=== PATIENT | male | born 1930 | race Caucasian/White ===

== ENCOUNTER 2016-03-04 16:14 | Inpatient (IN) | payer MEDICARE ==
[~2016-03-04] VITALS: Ht 180.3 cm; Wt 91.2 kg
[2016-03-04 16:16] VITALS: BP 149/75; PULSE 83; RESP 16; O2SAT 95
--- NOTE | 2016-03-04 16:47 | ED.REPORT ---
HPI-General Illness Date of Service Mar 04, 2016 ED Provider: Dr. Ordoñez Pt is an 85 y.o. male with a hx of HTN, DM, and dementia who presents to the ED form accompanied by his with nausea, vomiting , and diarrhea onset 5 days ago. Per report and pt has associated cough, nasal congestion, rhinorrhea, decreased PO intake, generalized weakness, and abdominal soreness due to cough. states pt has not had fever and reports no hx of CHF or COPD. Pt received a flu swab at and it was negative for Influenza A and B. Nursing Notes Stated Complaint: NAUSEA, VOMITING, DIARRHEA, WEAKNESS/SENT FROM [facility] Chief Complaint: General Complaint Nursing Notes Reviewed: Yes Allergies: Coded Allergies: No Known Allergies (Unverified Allergy, Unknown, 03/04/16) General Time Seen by MD: 16:47 Chief Complaint Diarrhea, Vomiting Hx Obtained From: Patient, Spouse Arrived By: Walk-in Sudden in Onset?: Yes Onset Occurred: 5 days ago Symptom Duration: Since onset Location: : Abdomen Quality: Painful Severity: Current: Moderate Recent Healthcare: Recent doctor visit Past Medical History Past Medical History Dementia Reports: Diabetes mellitus, Hypertension, Denies: COPD Past Surgical History Throat abscess Reports: Cholecystectomy Reports: Back/neck surgery Review of Systems Decreased PO intake Full Review of Systems Constitutional: Reports: Weakness - generalized, Denies: Fever Ears / Nose / Throat: Reports: Nasal congestion GI: Reports: Abdominal pain, Diarrhea, Nausea, Vomiting Allergy / Immune: Reports: Rhinorrhea Complete sys rev & neg: except as marked. Physical Exam Vital Signs Vital Signs Date Time Temp Pulse Resp B/P Pulse Ox O2 Delivery O2 Flow Rate FiO2 03/04/16 16:54 82 15 112/80 91 Room Air 03/04/16 16:16 36.5 83 16 149/75 95 Room Air Initial VS: Reviewed Head / Eyes: Atraumatic, Normocephalic Extremities: Vascular intact, Neuro intact Skin: Warm, Dry, No cyanosis Neurologic: Alert, Oriented, Nonfocal Psychiatric: Mood/affect normal, Behavior normal, Normal thought content General/Constitutional: Awake, Alert, Well appearing, Well developed, Well hydrated, Well nourished, Not toxic appearing Respiratory / Chest: Atraumatic, No respiratory distress, No rales, No rhonchi , No wheezing, No retractions, No stridor Diminished Breath Sounds: Positive: Decreased bilateral No crackles Cardiovascular: Heart rate NL, Regular rhythm, Heart sounds NL, Peripheral circulation NL No lower extremity edema Abdomen: Atraumatic, Soft, No guarding, No rebound Tenderness/Guarding/Rebound: Positive: Tender suprapubic (Mild) Interpretation & Diagnostics Lab Results Interpretation Result Diagram: 03/04/16 1720 03/04/16 1720 Test 03/04/16 17:20 White Blood Count 7.5th/mm3 (3.8-10.1) Red Blood Count 3.96mil/mm3 (4.40-5.80) Hemoglobin 13.0g/dL (13.8-17.2) Hematocrit 38.3% (41.0-50.0) Mean Corpuscular Volume 96.7fL (81-100) Mean Corpuscular Hemoglobin 32.8pg (27.0-35.0) Mean Corpuscular Hemoglobin Concent 33.9% (32.0-37.0) Red Cell Distribution Width 12.5% (12.3-15.4) Platelet Count 209bil/L (150-400) Neutrophils (%) (Auto) 76.7% (40-74) Lymphocytes (%) (Auto) 9.4% (14-46) Monocytes (%) (Auto) 11.9% (4-12) Eosinophils (%) (Auto) 1.6% (0-5) Basophils (%) (Auto) 0.3% (0-3) Prothrombin Time 10.7sec (8.1-12.5) Prothromb Time International Ratio 1.00ratio Activated Partial Thromboplast Time 25.4sec (22.8-33.0) Sodium Level 135mEq/L (134-144) Potassium Level 3.4mEq/L (3.5-5.2) Chloride Level 97mEq/L (97-108) Carbon Dioxide Level 24mmol/L (18-29) Blood Urea Nitrogen 39mg/dL (8-27) Creatinine 1.29mg/dL (0.76-1.27) Estimat Glomerular Filtration Rate 56mL/min (>59) Glucose Level 129mg/dL (60-99) Lactic Acid Level 1.5mmol/L (0.4-2.0) Calcium Level 8.8mg/dL (8.5-10.1) Total Bilirubin 0.6mg/dL (0.0-1.2) Aspartate Amino Transf (AST/SGOT) 23U/L (0-50) Alanine Aminotransferase (ALT/SGPT) 18U/L (0-44) Alkaline Phosphatase 117U/L (25-160) Troponin T < 0.010ug/L (0.0-0.011) Pro-B-Type Natriuretic Peptide 40.65pg/mL (0-486) Total Protein 7.6g/dL (6.4-8.4) Albumin 4.4g/dL (3.4-5.0) Lipase 62U/L (13-60) ECG Interpretation ECG Interpretation: No ST changes Time: 17:39 Normal ECG Interpretation: Normal rate (76), Normal sinus rhythm X-Ray Chest Interpretation Chest Xray Interpretation: IMPRESSION: Slight appearance of increased right basilar opacity. Developing airspace disease such as pneumonia cannot be excluded. Dictated by: Chante Rodriguez M.D. on 03/04/2016 at 17:11 Approved by: Chante Rodriguez M.D. on 03/04/2016 at 17:11 Re-Eval/Medical Decision Med Decision/Clinical Course 85-year-old male history of diabetes, dementia, hypertension presenting with cough nausea vomiting for several days. Chest x-ray with right basilar pneumonia. Oxygen 88% on room air. Requiring several liters oxygen. Troponins negative. Patient will be admitted for pneumonia. He was given Rocephin and azithromycin. We will place on telemetry. Full code. Source of Hx: Old records Time of Eval: 18:31 Re-Evaluation/Progress Note: Pt rechecked. Discussed dx and plan for admission, pt understands and agrees with plan. Pt is full code. Consultation : Referral / Consult Name: Booker Goddard MD Consulted With: Hospitalist Call Returned at: 18:44 Note: Discussed pt condition, accepts admit. Counseled Regarding: Diagnosis, Lab results, Need for admission Discharge & Departure Primary Impression: Pneumonia Disposition: ADMITTED TO HOSPITAL Discharge Condition All VS Reviewed: Yes Condition: Stable Referrals: Tyler Boo MD (PCP) Scribe Attestation Portions of this note were transcribed by Will Huerta I, Dr. Lucas-Roberts personally performed the history, physical exam and medical decision-making; I reviewed and confirmed the accuracy of the information in the transcribed note. Signed by: Blanca Vallejo, 03/04/16 and 1846. copies to: Tyler Boo MD, Ben M MD Mar 04, 2016 16:47 WILL HUERTA Mar 04, 2016 17:01
[2016-03-04 16:54] VITALS: BP 112/80; PULSE 82; RESP 15; O2SAT 91
--- NOTE | 2016-03-04 17:17 | DRSVH ---
PROCEDURE: X-RAY CHEST ONE VIEW, PORTABLE ([id number]) INDICATIONS: dyspnea TECHNIQUE: One view of the chest was acquired. COMPARISON: [facility], CR, XR CHEST 2VW, 09/02/2015, 19:22. FINDINGS: Surgical changes and devices: None. Lungs and pleura: Slight appearance of slight increased opacity within the right base. Mediastinum: Mediastinal contours appear normal. Heart size is normal. Bones and chest wall: No suspicious bony lesions. Overlying soft tissues appear unremarkable. IMPRESSION: Slight appearance of increased right basilar opacity. Developing airspace disease such as pneumonia cannot be excluded. Dictated by: Chante Rodriguez M.D. on 03/04/2016 at 17:11 Approved by: Chante Rodriguez M.D. on 03/04/2016 at 17:11
[2016-03-04 17:37] LABS: BASOPHILS % (AUTO) 0.3 % (0-3); EOSINOPHILS % (AUTO) 1.6 % (0-5); MONOCYTES % (AUTO) 11.9 % (4-12); Mean Corpuscular Hemoglobin 32.8 pg (27.0-35.0); Mean Corpuscular Volume 96.7 fL (81-100); NEUTROPHILS % (AUTO) 76.7 % (40-74); Platelet Count 209 bil/L (150-400)
[2016-03-04 18:10] LABS: TROPONIN T < 0.010 ug/L (0.0-0.011)
[2016-03-04] MEDS ORDERED: cefTRIAXone Inj 2,000 MG in IV Premix 1 EACH IV SCH (18:25)
[2016-03-04] MEDS ORDERED: Azithromycin Inj 500 MG in Dextrose 5% 250 ML IV ONE (18:25)
[2016-03-04] MEDS ORDERED: Ondansetron 2 mg/mL 2 mL Inj IVPUSH PRN (19:10)
[2016-03-04] MEDS ORDERED: Alum-Mag Hydrox-Simeth 30 mL Suspension PO PRN (19:10)
[2016-03-04] MEDS ORDERED: cefTRIAXone Inj 2,000 MG in Dextrose 5% Minibag Plus 50 ML IV SCH (19:33)
[2016-03-04] MEDS ORDERED: [UNRECOGNIZED DRUG - OTHER] IV ONE (19:36)
[2016-03-04] MEDS ORDERED: CEFTRIAXONE 2000 MG/50 ML IV ONE (19:36)
[2016-03-04] MEDS ORDERED: Glucose 40% Oral Gel 15 Gm Tube PO PRN (19:40)
--- NOTE | 2016-03-04 19:46 | PCM.HPMED ---
Subjective Date of Service Mar 04, 2016 Primary Provider: Admitting Physician: Booker Goddard MD Primary Care Physician: Suhas Fisher MD Attending Physician: Booker Goddard MD Chief Complaint: vomiting x 5 days, found to be also hypoxic at urgent care HISTORY was OBTAINED FROM PATIENT / MEDITECH NOTES History of present illness 85-year-old man with vomiting, with mild epigastric discomfort on palpation only, diarrhea, weakness for the last 5 days, sent by urgent care with influenza negative. SOB was after the 5 days of vomiting. initially vomiting was blood tingued but remainder vomiting has been w/o blood. No fever/CHF/COPD/pancreatitis history. no recent fatty food. no recent questionable food ingestion. prior cholecystectomy was due to gallstones. no choking/dysphagia on food in general. In the ER 85% room air, Rocephin, azithromycin, Tylenol, Zofran Maalox, felt better with oxygen, diminished breath sounds Review of Systems - none of the following - F/C/sick contact / wt change/ VARGAS / lightheaded / dizziness / cp // bleeding/bruising / leg swelling / change in voiding / yeast infections / rash Abdominal muscles hurt from cough ambulates recent right leg edema 3 weeks ago, not bedridden FAMILY HX no gallstones/ no pancreatitis SOCIAL HX Social EtOH, Distant smoker Past Medical/Surgical HX Colon polyps hemorrhoids Hypertension Diabetes type II insulin use Cholecystectomy, throat abscess drainage, back operation Dementia Allergies Coded Allergies: No Known Allergies (Unverified Allergy, Unknown, 03/04/16) PMH Social History Hx Alcohol Use: Yes ("once a month") Hx Substance Use: No Exam Vital Signs Vital Sign - Last Date Time Temp Pulse Resp B/P Pulse Ox O2 Delivery O2 Flow Rate FiO2 03/04/16 16:54 82 15 112/80 91 Room Air 03/04/16 16:16 36.5 Lab and Diagnostics Labs Exam on admission 1.5 L NC NAD A and O x 3 mood affect WNL NC/AT no icterus no injected eyes EOMI PERRL /no pharyngeal lesions/ no oral lesions / hearing intact Supple neck CTAB equal chest rise / no accessory muscle use / speaks in full sentences / no rrw RRR S1 S2 / no mrg / 2+ radial pulses epigastric tenderness // Soft nd + BS no hepatosplenomegaly trace jones bilateral edema no cyanosis no ecchymosis of lower extremities No rash / no jaundice CARD EKG sinus rhythm and ST depressions in lateral leads are not significant Trop normal BNP 40 lactic acid normal Flu negative Blood culture pending Influenza negative PCR viral pending LFT normal, lipase 62 Left shift INR 1 Imaging PROCEDURE: X-RAY CHEST ONE VIEW, PORTABLE ([id number]) INDICATIONS: dyspnea TECHNIQUE: One view of the chest was acquired. COMPARISON: [facility], CR, XR CHEST 2VW, 09/02/2015, 19:22. FINDINGS: Surgical changes and devices: None. Lungs and pleura: Slight appearance of slight increased opacity within the right base. Mediastinum: Mediastinal contours appear normal. Heart size is normal. Bones and chest wall: No suspicious bony lesions. Overlying soft tissues appear unremarkable. IMPRESSION: Slight appearance of increased right basilar opacity. Developing airspace disease such as pneumonia cannot be excluded. Result Diagram: 03/04/16 1720 03/04/16 1720 Assessment & Plan Active issues and reason for admission 85-year-old male who presented with vomiting diarrhea then cough, treating as gastroenteritis/pancreatitis and right aspiration pneumonia/community-acquired pneumonia, hypoxia associated -- Zofran, clear liquid diet as tolerated, Rocephin and azithromycin,IVF 75cc/ hr x 500cc, famotitidine IV -- Sputum, stool pending, PCR viral pending, DuoNeb's when necessary, wean O2, incentive spirometer elevated lipase, normal LFTs, likely nonspecific finding, prior cholecystectomy -- Low threshold to hold diet, CT abdomen to evaluate for choledocholithiasis/ overt pancreatic duct stone, lipase in the morning -- Cholesterol pending, no prior dyslipidemia, not heavy ETOH, no prior pancreatitis hx recent resolved Right leg edema --pending US, no DVT risk factors elicited RIYA, likely prerenal --IVF 75 / hr x 500cc Chronic issues known prior to admission, present on admission Colon polyps hemorrhoids Hypertension Diabetes type II insulin use Cholecystectomy, throat abscess drainage, back operation Dementia --SSI --prn antiHTN IV Diet clear DVT prophylaxis lovenox Code full Disposition inpt Assessment and plan were discussed with patient Booker Goddard MD Mar 04, 2016 19:46
[2016-03-04] MEDS ORDERED: Albuterol-Ipratropium 3 mL Inhalation Solution NEB PRN (19:50)
--- NOTE | 2016-03-04 19:57 | NUR ---
Admit Patient arrived to floor at 1954 from ED. Patient A&Ox3. IV in left AC, patent and infusing ABX. Patient's vitals stable. Report received from Velma MONTERO. Patient on 2L O2.
[2016-03-04 20:15] VITALS: BP 146/65; PULSE 83; RESP 20; O2SAT 96
[2016-03-04] MEDS: 0.9% Sodium Chloride 500 ML IV SCH (20:54)
[2016-03-04 21:20] LABS: APPEARANCE,URINE CLEAR (CLEAR,HAZY); COLOR,URINE YELLOW (YELLOW); OCCULT BLOOD,URINE NEGATIVE (NEGATIVE); PH,URINE 5.5 (5.0-8.0); UROBILINOGEN,URINE NORMAL (NORMAL)
[2016-03-04] MEDS: Famotidine Inj 20 MG in IV Premix 1 EACH IV SCH (21:54)
[2016-03-04] MEDS: Insulin LISPRO 300 Unit/3 mL Inj SUBQ SCH (22:00)
[2016-03-04] MEDS ORDERED: cefTRIAXone Inj 2,000 MG in Dextrose 5% Minibag Plus 50 ML IV ONE (23:17)
[2016-03-05] VITALS (8 sets, daily range): BP systolic 142–165; BP diastolic 65–76; PULSE 69–84; RESP 16–21; O2SAT 94–97
[2016-03-05] MEDS: 0.9% Sodium Chloride 500 ML IV SCH ×3 (04:30→16:48)
--- NOTE | 2016-03-05 05:02 | NUR ---
Blood sugar Patient's blood sugar was 58 at 0315. Patient was given apple juice and jello ot eat. 15 minutes later patient's blood sugar was 101. Patient stated he felt fine and no other symptoms of hypoglycemia were present.
[2016-03-05] MEDS: Insulin LISPRO 300 Unit/3 mL Inj SUBQ SCH ×4 (08:00→22:00)
[2016-03-05 08:07] LABS: BASOPHILS % (AUTO) 0.5 % (0-3); EOSINOPHILS % (AUTO) 2.3 % (0-5); MONOCYTES % (AUTO) 13.8 % (4-12); Mean Corpuscular Hemoglobin 33.4 pg (27.0-35.0); Mean Corpuscular Volume 96.6 fL (81-100); NEUTROPHILS % (AUTO) 68.4 % (40-74); Platelet Count 185 bil/L (150-400)
[2016-03-05] MEDS: Azithromycin Inj 500 MG in Dextrose 5% w/Vial Mate 250 ML IV SCH (08:30)
[2016-03-05] MEDS ORDERED: cefTRIAXone Inj 1,000 MG in Dextrose 5% Minibag Plus 50 ML IV SCH (08:30)
[2016-03-05] MEDS: Famotidine Inj 20 MG in IV Premix 1 EACH IV SCH ×2 (10:00→22:11)
--- NOTE | 2016-03-05 11:56 | DRSVH ---
PROCEDURE: CT ABDOMEN WITHOUT CONTRAST ([id number]) INDICATIONS: pancreatitis/choledocholith TECHNIQUE: After the administration of oral contrast, 5 mm thick sections acquired from the diaphragms to the il iac crests. 5 mm coronal and sagittal reformats were then performed. For radiation dose reduction, the following was used: automated exposure control, adjustment of mA and/or kV according to patient size. COMPARISON: None. FINDINGS: Image quality: Excellent. Lung bases: Mild atelectasis or scar is present at the right lung base. Heart is normal size. Solid organs: Liver and spleen are normal in size. No intrahepatic biliary ductal dilatation is note d on this noncontrast study. The common bile duct is grossly normal. No suspicious intraductal radiod ensities. Gallbladder is surgically absent. Pancreas is normal in contours. No adrenal nodules. Anibal th kidneys are normal in size, without hydronephrosis. There is a nonobstructing 9 mm in diameter rig ht midpole renal calculus. Peritoneum and bowel: Bowel loops demonstrate normal wall thickness and caliber. No free fluid or a ir. Nodes and vessels: No retroperitoneal or mesenteric adenopathy by size criteria. Aorta and inferior vena cava are normal in size. There are scattered atheromatous calcifications throughout the aorta a nd iliac arteries bilaterally. Bones: No suspicious bony lesions. No vertebral body compression fractures. Degenerative changes an d ankylosis are present within the thoracolumbar junction. Miscellaneous: No ventral hernias. IMPRESSION: 1. Nonocclusive right nephrolithiasis. 2. No intrahepatic biliary ductal dilatation or suspicious findings in the common bile duct; however, CT is less sensitive for choledocholithiasis and biliary ectasia. If further characterization is war ranted, right upper quadrant ultrasound or MRCP may be helpful. Dictated by: Francine Montiel M.D. on 03/05/2016 at 11:47 Approved by: Francine Montiel M.D. on 03/05/2016 at 11:54
[2016-03-05] MEDS ORDERED: Potassium Chloride 20 mEq SR Tablet PO ONE (13:55)
--- NOTE | 2016-03-05 14:01 | PCM.PNMED ---
Subjective Date of Service Mar 05, 2016 Subjective History of present illness as per admitting physician: 85-year-old man with vomiting, with mild epigastric discomfort on palpation only , diarrhea, weakness for the last 5 days, sent by urgent care with influenza negative. SOB was after the 5 days of vomiting. initially vomiting was blood tingued but remainder vomiting has been w/o blood. No fever/CHF/COPD/ pancreatitis history. no recent fatty food. no recent questionable food ingestion. prior cholecystectomy was due to gallstones. no choking/dysphagia on food in general. In the ER 85% room air, Rocephin, azithromycin, Tylenol, Zofran Maalox, felt better with oxygen, diminished breath sounds S- patient was seen this morning, states she feels better has been having loose stool but states he has loose stool at baseline. With increased urgency/ incontinence chronically. Patient has been having URI symptoms lately and granddaughter at home had some URI symptoms as well. Currently denies shortness of breath or chest pain. Exam Vital Signs Vital Sign - Last Date Time Temp Pulse Resp B/P Pulse Ox O2 Delivery O2 Flow Rate FiO2 03/05/16 10:31 36.8 78 18 145/72 94 Nasal Cannula 2.00 Intake and Output 03/04/16 03/04/16 03/05/16 Cumulative From/Thru 15:00 23:00 07:00 03/04/16 16:16 - 03/05/16 06:51 Intake Total 540 ml 540 ml Output Total 625 ml 625 ml Balance -85 ml -85 ml Intake Oral 540 ml 540 ml Output Urine Total 625 ml 625 ml Stool Total 0 ml 0 ml # Voids 4 4 Exam 2 L nasal cannula NAD A and O x 3 mood affect WNL NC/AT no icterus no injected eyes EOMI PERRL /no pharyngeal lesions/ no oral lesions / hearing intact Supple neck CTAB equal chest rise / no accessory muscle use / speaks in full sentences / no rrw RRR S1 S2 / no mrg / 2+ radial pulses epigastric tenderness // Soft nd + BS no hepatosplenomegaly trace jones bilateral edema no cyanosis no ecchymosis of lower extremities No rash / no jaundice CARD IVs and Medications Medications Reviewed: Medications were reviewed in detail Medications Added 40 mg potassium chloride to regimen 1 Lab and Diagnostics Result Diagram: 03/05/1613 03/05/1613 X-Rays, CTs and MRIs CT abdomen IMPRESSION: 1. Nonocclusive right nephrolithiasis. 2. No intrahepatic biliary ductal dilatation or suspicious findings in the common bile duct; however, CT is less sensitive for choledocholithiasis and biliary ectasia. If further characterization is warranted, right upper quadrant ultrasound or MRCP may be helpful. 12-lead ECG Normal sinus rhythm on EKG, no acute ischemic changes, normal axis and normal intervals Assessment & Plan 85-year-old male who presented with vomiting diarrhea then cough, treating as gastroenteritis and right aspiration pneumonia/community-acquired pneumonia, hypoxia associated -- Zofran, advance diet from clear liquid upon admission today --Continue Rocephin and azithromycin, status post IVF 75cc/hr x 500cc, will stop IV fluids now -- famotitidine IV -- Sputum, stool pending, PCR viral pending, DuoNeb's when necessary, wean O2, incentive spirometer -- Pancreatitis initially on differential, but now CT with no evidence of pancreatitis and patient's nausea improving elevated lipase, normal LFTs, likely nonspecific finding, prior cholecystectomy- repeat lipase normalized -- CT abdomen to evaluate for choledocholithiasis/overt pancreatic duct stone was negative -- Cholesterol pending, no prior dyslipidemia, not heavy ETOH, no prior pancreatitis hx recent resolved Right leg edema --pending US, no DVT risk factors elicited RIYA, likely prerenal --IVF 75 / hr x 500cc, now stopped 03/05 Chronic issues known prior to admission, present on admission Colon polyps hemorrhoids Hypertension Diabetes type II insulin use Cholecystectomy, throat abscess drainage, back operation Dementia --SSI --prn antiHTN IV Diet clear DVT prophylaxis lovenox Code full Disposition inpt Assessment and plan were discussed with patient Pain Evaluation: Adequate Pain Control GI Prophylaxis: H2 glenn VTE Mechanical Devices: Intermittant Pneumatic CD Resuscitation Status: CPR: Attempt Resuscitation Time spent 35 minutes spent for evaluation and management of this patient Attending Statement Likely discharge with stabilization of hypoxia and continued stabilization of GI symptoms, pending PT Julian Boles DO Mar 05, 2016 14:01
--- NOTE | 2016-03-05 14:07 | NUR ---
Tele Tele called that pt had run of bigem PVC's from 1334 to 1348. Pt is asymptomatic upon assessment. MD notified and stat EKG ordered, along with potassium PO.
[2016-03-05] MEDS ORDERED: ZOLP5TAB6 PO (14:17)
[2016-03-05] MEDS ORDERED: MIRT15TA6 PO (14:17)
[2016-03-05] MEDS ORDERED: NPH,100V11 SUBQ ×2 (14:17)
[2016-03-05] MEDS ORDERED: NIFE60TA62 PO (14:17)
[2016-03-05] MEDS ORDERED: LACT1CAP67 PO (14:17)
[2016-03-05] MEDS ORDERED: DONE10TA42 PO (14:17)
[2016-03-05] MEDS ORDERED: LOVA40TA PO (14:17)
[2016-03-05] MEDS ORDERED: METF1000 PO (14:17)
[2016-03-05] MEDS ORDERED: HYDR25TA4 PO (14:17)
[2016-03-05] MEDS ORDERED: ASPI-973 PO (14:17)
--- NOTE | 2016-03-05 15:55 | NUR ---
Social work: Initial Assessment Data & Assessment: EMR Reviewed. See Initial Assessment. SW met with patient and patient's /NOK, Cristiane Herrera- [phone], at bedside to complete initial assessment, discuss discharge planning, and SW role reviewed. Patient is a 85 y/o male that admitted due to pneumonia. Patient's PCP is Dr. Suhas Fisher and patient's insurance is [employer] Medicare. Patient does not have VA or LTC benefits. Patient's re-admit score is low at 1. Patient has no SNF or HH history. Patient lives in a one story home with two steps to enter. patient has a walker and cane. Patient does not have an identified SW need at the current time. SW will continue to follow incase a need arise. Plan: Patient is likely to discharge home with spouse via POV when medically stable. SW will continue to follow. Matias Bell LMSW, JESUS Addendum: 03/05/16 at 1601 by MATIAS KOHLI Amended: Links added.
--- NOTE | 2016-03-05 18:10 | NUR ---
Activity Pt extremely unsteady on feet, but is overly confidant about abilities. Wants to use BR and will try to get OOB by himself. Pt has urgency and can be incontinant if not helped in time. Pt has brief on. Alert only to self, but pleasant and agreeable to care. O2 at last check was 96% on RA, so oxygen off for now. Pt did have some coughing while eating, no PO medications taken today, but said he can have problems swallowing large pills. Might want to have MD order a swallow eval tomorrow.
[2016-03-06] VITALS (7 sets, daily range): BP systolic 151–178; BP diastolic 70–75; PULSE 75–89; RESP 18–19; O2SAT 92–96
--- NOTE | 2016-03-06 03:30 | NUR ---
ACTIVITY; up to bathroom with one assistance to void. Also brief on for inc. of urine. Using call light appropriately.
--- NOTE | 2016-03-06 04:41 | NUR ---
WEIR FISHERMAN; reports: less than one minute run of bigem. Sleeping, no c/o voiced.
[2016-03-06 06:17] LABS: BASOPHILS % (AUTO) 0.4 % (0-3); EOSINOPHILS % (AUTO) 4.8 % (0-5); MONOCYTES % (AUTO) 16.3 % (4-12); Mean Corpuscular Hemoglobin 33.3 pg (27.0-35.0); Mean Corpuscular Volume 96.3 fL (81-100); NEUTROPHILS % (AUTO) 56.4 % (40-74); Platelet Count 174 bil/L (150-400)
[2016-03-06] MEDS: Insulin LISPRO 300 Unit/3 mL Inj SUBQ SCH ×4 (08:00→22:00)
[2016-03-06] MEDS ORDERED: KCl 40 mEq/D5W 500 mL 40 MEQ in IV Premix 500 EACH IV ONE (08:05)
[2016-03-06] MEDS ORDERED: Potassium Chloride 20 mEq SR Tablet PO ONE (08:05)
[2016-03-06] MEDS: Azithromycin Inj 500 MG in Dextrose 5% w/Vial Mate 250 ML IV SCH (08:09)
[2016-03-06] MEDS: Fluticasone 0.05% 15 Spray/2 Gm 16 Gm Nasal Spray NASAL SCH (08:09)
[2016-03-06] MEDS: Famotidine Inj 20 MG in IV Premix 1 EACH IV SCH ×2 (08:10→20:54)
[2016-03-06] MEDS ORDERED: cefTRIAXone Inj 1,000 MG in Dextrose 5% Minibag Plus 50 ML IV SCH (08:30)
--- NOTE | 2016-03-06 11:00 | NUR ---
JASE: Patient at bedside and she signed for patient.
[2016-03-06] MEDS ORDERED: 0.9% Sodium Chloride 250 ML ONE (11:52)
--- NOTE | 2016-03-06 15:22 | NUR ---
Evaluation completed. Please go to "Notes" then click on "Assessments and Notes" (bottom left corner of screen). Then select appropriate discipline tab on top of screen.
--- NOTE | 2016-03-06 15:58 | NUR ---
GI- Denies nausea or abd. pain. Up to bathroom with walker and standby assist. Voiding ivory colored urine. Has had liquid brown stool x 2. Tolerating diet and fluids. Patient was disoriented this am, but has become mentally clearer as the day as progressed. Calling for assist appropriately.
--- NOTE | 2016-03-06 19:29 | PCM.PNMED ---
Subjective Date of Service Mar 06, 2016 Subjective denies any new issues/complaints. continued abdominal pain and diarrhea with cough Exam Vital Signs Vital Sign - Last Date Time Temp Pulse Resp B/P Pulse Ox O2 Delivery O2 Flow Rate FiO2 03/06/16 16:45 Supplement Oxygen 03/06/16 14:44 36.7 76 18 151/70 95 03/06/16 05:32 2.00 Intake and Output 03/05/16 03/05/16 03/06/16 Cumulative From/Thru 15:00 23:00 07:00 03/04/16 16:16 - 03/06/16 05:48 Intake Total 968 ml 1362 ml 350 ml 3220 ml Output Total 350 ml 300 ml 1275 ml Balance 968 ml 1012 ml 50 ml 1945 ml Intake Oral 600 ml 350 ml 1490 ml IV Total 968 ml 762 ml 1730 ml Output Urine Total 350 ml 300 ml 1275 ml Stool Total 0 ml # Voids 4 4 12 General: Alert, Cooperative, No Acute Distress Eyes: Scleral Anicteric Mouth: Mucous Membr Moist/Chicken Neck: Supple Chest & Lungs: Chest Wall Normal, Coarse breath sounds (upper resp bilat) Cardiovascular: Regular Rate/Rhythm Abdomen: Tender (mid abd), Non-distended, Normoactive bowel tones, Soft Extremities: No cyanosis/clubbing/edma bilat Neurological: Grossly Neurologically Intact, Normal Speech IVs and Medications Medications Reviewed: Medications were reviewed in detail Lab and Diagnostics Result Diagram: 03/06/1653203/06/16 0533 X-Rays, CTs and MRIs CT abdomen IMPRESSION: 1. Nonocclusive right nephrolithiasis. 2. No intrahepatic biliary ductal dilatation or suspicious findings in the common bile duct; however, CT is less sensitive for choledocholithiasis and biliary ectasia. If further characterization is warranted, right upper quadrant ultrasound or MRCP may be helpful. 12-lead ECG Normal sinus rhythm on EKG, no acute ischemic changes, normal axis and normal intervals Assessment & Plan 85-year-old male who presented with vomiting diarrhea then cough # Suspected acute community acquired vs aspiration pneumonia on admission - clinically seems unlikely given negative procalcitonin, no leukocytosis, afebrile and CXR finding - checked resp viral PCR and indeed positive for Flu A - stop Abx - ? benefit of Tamiflu given symptoms apparently ongoing for few days prior to presentation nevertheless given advanced age and comorbidities will start treatment for at least 5 days # Acute on chronic abdominal pain and diarrhea - apparently somewhat worked up in the past - check stool PCR - if abdominal pain persist will consider GI consult for consideration of EGD # elevated lipase, normal LFTs, likely nonspecific finding, - prior cholecystectomy - repeat lipase normalized # RIYA, poa. likely prerenal - resolved with IVF - f/u # Hypertension. chronic. poorly controlled - Stop home HCTZ - start low dose Lisinopril - f/u # Diabetes type II insulin use - Hold metformin - ISS - check A1C # Dementia - mild and stable - c/w home Donepezil Dispo: likely 2-3 days pending further PT eval and clinical course GI Prophylaxis: H2 glenn VTE Mechanical Devices: Intermittant Pneumatic CD Resuscitation Status: CPR: Attempt Resuscitation Time spent 35 min Earnest Colbert Mar 06, 2016 19:29
[2016-03-07 00:43] VITALS: BP 167/70; PULSE 79; RESP 16; O2SAT 92
[2016-03-07 04:48] VITALS: BP 156/62; PULSE 54; RESP 16; O2SAT 95
[2016-03-07 06:19] LABS: BASOPHILS % (AUTO) 0.2 % (0-3); EOSINOPHILS % (AUTO) 8.7 % (0-5); MONOCYTES % (AUTO) 18.5 % (4-12); Mean Corpuscular Volume 97.5 fL (81-100); NEUTROPHILS % (AUTO) 45.5 % (40-74); Platelet Count 167 bil/L (150-400)
--- NOTE | 2016-03-07 07:03 | NUR ---
activity pt has been using the call light appropriately. he has been getting up to go to the bathroom with 1 PA. it takes pt some time and effort to get to a standing position from the bed but once up he walks steadily with a FWW. he has denied pain or N/V. he has had no BMs this shift. care continues.
[2016-03-07] MEDS: Insulin LISPRO 300 Unit/3 mL Inj SUBQ SCH ×2 (07:57→13:45)
[2016-03-07 08:21] VITALS: PULSE 71; RESP 16; O2SAT 93
[2016-03-07] MEDS ORDERED: 0.9% Sodium Chloride 250 ML ONE (08:38)
[2016-03-07] MEDS: Famotidine Inj 20 MG in IV Premix 1 EACH IV SCH (08:42)
[2016-03-07] MEDS: Fluticasone 0.05% 15 Spray/2 Gm 16 Gm Nasal Spray NASAL SCH (08:42)
[2016-03-07] MEDS ORDERED: LISI2.5T PO (12:49)
--- NOTE | 2016-03-07 12:55 | PCM.DIMED ---
Discharge Instructions Date of Service Mar 07, 2016 Dates of Hospitalization Mar 04, 2016 at 18:55 Discharge Diagnosis Discharge Diagnosis # Acute influenza A H3, present on admission. Improving # acute dehydration, present on admission. Resolved. # Suspected acute community acquired vs aspiration pneumonia on admission ruled out # Acute on chronic abdominal pain and diarrhea. Unclear etiology. Resolved. # Acute Kidney Injury, present on admission. Likely due to dehydration. Resolved. # Hypertension. chronic. ongoing. # Diabetes type II - HgA1C 7.5 # Dementia, mild. stable. Diet Low fat, Low Sodium, Heart Healthy, Diabetic Activity No restrictions (Use front wheel walker when ambulating.) Call your provider Fever or Chills, Shortness of breath, Chest pain, Vomitting, Excessive diarrhea Patient Instructions Seek immediate medical attention if any new or worsening signs or symptoms occur. Follow-up plan 1. Followup with primary care provider in 2-7 days. Follow-up Provider: Suhas Campa MD, Masoud Mar 07, 2016 12:55
--- NOTE | 2016-03-07 13:00 | NUR ---
Social Work Continued Discharge Planning: SW met with patient at bedside to discuss discharge plan. Order for discharge acknowledged. Patient has a walker for use at home. Patient states plan as home with . Patient states being independent with needs and has no identified discharge needs at this time. PT notes reviewed and recommendations for home. No other needs identified at this time. SW to follow. PLAN: Home with via POV. No anticipated discharge needs identified Kalpana CRANDALL
--- NOTE | 2016-03-07 15:34 | NUR ---
Discharge Pt discharged to home with at ~1520. band sawmill operator Bir Zimmerman went over dc paperwork with pt and present. Hard copy script provided to pt. CareNotes provided on dc dx and new medications. SN dc'd IV intact prior to dc. No c/o pain. Pt in stable condition - tele dc'd prior to dc. No unanswered questions/concerns. Left via wc to vehicle. All personal belongings in hand. PRIOR TO DC - ASSESSMENT: Lungs decreased - stable on RA, No c/o chest pain or pain in general, Denied numbness/tingling, Gen bruising noted to bilateral arms. Pt alert but confused, has dementia. [place] in place for pt safety. Call light in reach. Pt calm and cooperative with care - redirectable. IV SL - patent.
--- NOTE | 2016-03-07 19:04 | PCM.DC.MED ---
Discharge Summary Date of Service Mar 07, 2016 Dates of Hospitalization Date of Hospital Admission Mar 04, 2016 at 18:55 Date of Discharge: Mar 07, 2016 Providers: Admitting Physician: Booker Goddard MD Primary Care Physician: Suhas Fisher MD Attending Physician: Booker Goddard MD Diagnosis at Time of Discharge Diagnosis at Time of Discharge # Acute influenza A H3, present on admission. Improving # acute dehydration, present on admission. Resolved. # Suspected acute community acquired vs aspiration pneumonia on admission ruled out # Acute on chronic abdominal pain and diarrhea. Unclear etiology. Resolved. # Acute Kidney Injury, present on admission. Likely due to dehydration. Resolved. # Hypertension. chronic. ongoing. # Diabetes type II - HgA1C 7.5 # Dementia, mild. stable. Procedures XRay, CTs & MRIs Date of Service: 03/05/16 0500 PROCEDURE: CT ABDOMEN WITHOUT CONTRAST ([id number]) IMPRESSION: 1. Nonocclusive right nephrolithiasis. 2. No intrahepatic biliary ductal dilatation or suspicious findings in the common bile duct; however, CT is less sensitive for choledocholithiasis and biliary ectasia. If further characterization is warranted, right upper quadrant ultrasound or MRCP may be helpful. Dictated by: Francine Montiel M.D. on 03/05/2016 at 11:47 Approved by: Francine Montiel M.D. on 03/05/2016 at 11:54 Date of Service: 03/04/16 1701 PROCEDURE: X-RAY CHEST ONE VIEW, PORTABLE ([id number]) IMPRESSION: Slight appearance of increased right basilar opacity. Developing airspace disease such as pneumonia cannot be excluded. Dictated by: Chante Rodriguez M.D. on 03/04/2016 at 17:11 Approved by: Chante Rodriguez M.D. on 03/04/2016 at 17:11 ECG 12 Lead Normal sinus rhythm on EKG, no acute ischemic changes, normal axis and normal intervals Brief History 85-year-old male who presented with vomiting diarrhea then cough Hospital Course # Suspected acute community acquired vs aspiration pneumonia on admission - clinically seems unlikely given negative procalcitonin, no leukocytosis, afebrile and CXR finding - checked resp viral PCR and indeed positive for Flu A - stopped Abx - ? benefit of Tamiflu given symptoms apparently ongoing for few days prior to presentation and now respiratory symptoms almost resolved. # Acute on chronic abdominal pain and diarrhea - apparently somewhat worked up in the past - ordered stool PCR but patient did not have any further BM during this hospital # elevated lipase, normal LFTs, likely nonspecific finding, - prior cholecystectomy - repeat lipase normalized # RIYA, poa. likely prerenal - resolved with IVF # Hypertension. chronic. poorly controlled - Stop home HCTZ given risk of dehydration - start low dose Lisinopril and f/u w/ PCP to adjust as outpatient # Diabetes type II insulin use - A1C 7.5 - further f/u as outpatient # Dementia - mild and stable - c/w home Donepezil by day of d/c lungs CTA bilat. speaking in full sentences. wants to go home. PT cleared pt to go home as well. Exam Vital Signs (Last) Date Time Temp Pulse Resp B/P Pulse Ox O2 Delivery O2 Flow Rate FiO2 03/07/16 08:21 71 16 93 Room Air 03/07/16 04:48 37.0 156/62 03/06/16 05:32 2.00 Test 03/04/16 17:20 03/04/16 20:52 03/05/16 06:13 03/06/16 05:33 Prothrombin Time 10.7sec (8.1-12.5) Prothromb Time International Ratio 1.00ratio Activated Partial Thromboplast Time 25.4sec (22.8-33.0) Lactic Acid Level 1.5mmol/L (0.4-2.0) Total Bilirubin 0.6mg/dL (0.0-1.2) Aspartate Amino Transf (AST/SGOT) 23U/L (0-50) Alanine Aminotransferase (ALT/SGPT) 18U/L (0-44) Alkaline Phosphatase 117U/L (25-160) Troponin T < 0.010ug/L (0.0-0.011) Pro-B-Type Natriuretic Peptide 40.65pg/mL (0-486) Total Protein 7.6g/dL (6.4-8.4) Albumin 4.4g/dL (3.4-5.0) Urine Color Yellow (YELLOW) Urine Appearance Clear (CLEAR,HAZY) Urine pH 5.5 (5.0-8.0) Urine Specific [place] 1.026 (1.003-1.035) Urine Protein Tracemg/dL (NEG,TRACE) Urine Glucose (UA) Negativemg/dL (NEGATIVE) Urine Ketones Negativemg/dL (NEGATIVE) Urine Occult Blood Negative (NEGATIVE) Urine Nitrite Negative (NEGATIVE) Urine Bilirubin Negative (NEGATIVE) Urine Urobilinogen Normalmg/dL (NORMAL) Urine Leukocyte Esterase Negative (NEGATIVE) Urine RBC 0-2/hpf (0-2) Urine WBC 0-5/hpf (0-5) Urine Epithelial Cells Occasional/hpf (NONE-MOD) Urine Crystals None seen (NONE SEEN) Urine Bacteria None/hpf (NONE-FEW) Urine Hyaline Casts None/lpf (NONE) Urine Granular Casts None seen (NONE SEEN) Urine Waxy Casts None seen (NONE SEEN) Urine Red Blood Cell Casts None seen (NONE SEEN) Urine White Blood Cell Casts None seen (NONE SEEN) Urine Mucus Present (None Seen) Urine Trichomonas None seen (NONE SEEN) Urine Yeast None (NONE SEEN) Urinalysis Comment None Urine Culture Reflexed Not indicated Magnesium Level 2.0mg/dL (1.6-2.6) Triglycerides Level 117mg/dL (0-149) Cholesterol Level 92mg/dL (100-199) LDL Cholesterol, Calculated 26.600mg/dL (0-99) VLDL Cholesterol 23.400mg/dL HDL Cholesterol 42mg/dL (>39) Cholesterol/HDL Ratio 2.19 (0.0-4.4) Hemoglobin A1c 7.5% (4.8-5.6) Procalcitonin 0.05ng/mL (See Comment) Test 03/07/16 05:30 White Blood Count 4.3th/mm3 (3.8-10.1) Red Blood Count 3.61mil/mm3 (4.40-5.80) Hemoglobin 11.9g/dL (13.8-17.2) Hematocrit 35.2% (41.0-50.0) Mean Corpuscular Volume 97.5fL (81-100) Mean Corpuscular Hemoglobin 33.0pg (27.0-35.0) Mean Corpuscular Hemoglobin Concent 33.8% (32.0-37.0) Red Cell Distribution Width 12.4% (12.3-15.4) Platelet Count 167bil/L (150-400) Neutrophils (%) (Auto) 45.5% (40-74) Lymphocytes (%) (Auto) 26.9% (14-46) Monocytes (%) (Auto) 18.5% (4-12) Eosinophils (%) (Auto) 8.7% (0-5) Basophils (%) (Auto) 0.2% (0-3) Sodium Level 141mEq/L (134-144) Potassium Level 4.4mEq/L (3.5-5.2) Chloride Level 104mEq/L (97-108) Carbon Dioxide Level 27mmol/L (18-29) Blood Urea Nitrogen 17mg/dL (8-27) Creatinine 1.07mg/dL (0.76-1.27) Estimat Glomerular Filtration Rate 70mL/min (>59) Glucose Level 146mg/dL (60-99) Calcium Level 8.4mg/dL (8.5-10.1) Lipase 60U/L (13-60) Discharge Medications Discharge Medications Aspirin (Aspirin) 81 Mg Tablet 81 MG PO Every Other Day (Reported) Donepezil (Donepezil) 10 Mg Tablet 20 MG PO QPM (Reported) Lactobacillus Combination No.4 (Probiotic) 1 Each Capsule 1 EACH PO DAILY ( Reported) Lisinopril (Lisinopril) 2.5 Mg Tablet 2.5 MG PO DAILY Prescribed by: YE YBARRA MD Lovastatin (Lovastatin) 40 Mg Tablet 40 MG PO QPM (Reported) Metformin (Glucophage) 1,000 Mg Tablet 1,000 MG PO BIDWM (Reported) Mirtazapine (Mirtazapine) 15 Mg Tablet 1.5 TAB PO HS (Reported) NPH, Human Insulin Isophane (HUMulin-N U100 Insulin Vial) 100 Unit/1 Ml Vial 50 UNIT SUBQ QAM (Reported) NPH, Human Insulin Isophane (HUMulin-N U100 Insulin Vial) 100 Unit/1 Ml Vial 20 UNIT SUBQ QPM (Reported) Nifedipine ER (Nifedipine ER) 60 Mg Tab.er.24 60 MG PO BID (Reported) Zolpidem (Zolpidem) 5 Mg Tablet 5 MG PO HS (Reported) Followup Plan Disposition: Home Follow-up plan 1. Followup with primary care provider in 2-7 days. Discharge Diet: Low fat, Low Sodium, Heart Healthy, Diabetic Discharge Activity: No restrictions (Use front wheel walker when ambulating.) Patient Instructions Seek immediate medical attention if any new or worsening signs or symptoms occur. Follow-up Provider: Suhas Campa MD Time spent 35 min copies to: Suhas Fisher MD, Masoud Mar 07, 2016 19:04
== END 2016-03-07 15:13 | disposition home or self-care (01) | DRG 195 ==
LOC: SED 16:14 → OSC 18:55
PROVIDERS: ADMIT Urology; ATTEND Urology
DX: J10.1 Influenza due to other identified influenza virus with other respiratory manifestations (principal); I10 Essential (primary) hypertension; E86.0 Dehydration; R10.9 Unspecified abdominal pain; N39.41 Urge incontinence; E11.9 Type 2 diabetes mellitus without complications; F03.90 Unspecified dementia, unspecified severity, without behavioral disturbance, psychotic disturbance, mood disturbance, and anxiety; Z90.49 Acquired absence of other specified parts of digestive tract

== ENCOUNTER 2016-05-22 05:09 | Inpatient (IN) | payer MEDICARE ==
[~2016-05-22] VITALS: Ht 177.8 cm; Wt 88.1 kg
[2016-05-22] VITALS (10 sets, daily range): BP systolic 120–160; BP diastolic 40–78; PULSE 71–89; RESP 13–29; O2SAT 95–100
[~2016-05-22 05:09] MED LIST: ASPI-973 PO; DONE10TA42 PO; LACT1CAP67 PO; LISI2.5T PO; LOVA40TA PO; METF1000 PO; MIRT15TA6 PO; NIFE60TA62 PO; NPH,100V11 SUBQ; ZOLP5TAB6 PO
--- NOTE | 2016-05-22 05:16 | ED.REPORT ---
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 Per the EMS, the patient's last known normal status was 2300 last night. His woke him up this morning after hearing the patient snoring abnormally. He was found to be altered and EMS was called. EMS found the patient's blood sugar level was 40. He was given an AMP of B50 and he was left drinking juice and eating a sandwich. His repeat blood glucose was 160. The then called EMS again and reported the patient had difficulty walking, was confused, and almost had an episode of syncope. When EMS arrived, he was again back at baseline. In route to the ED, the patient had another episode of altered mental status when stopped speaking and he was grabbing towards things on the left side of his body. Once the patient arrived to the ED he was speaking normally again. The patient reports feeling shaky but is otherwise back to normal. 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 Fox (Neurology). Nursing Notes Stated Complaint: WEAKNESS/CONFUSION Chief Complaint: Neuro Symptoms/ Deficits Nursing Notes Reviewed: Yes Allergies: Coded Allergies: No Known Allergies (Verified Allergy, Unknown, 03/05/16) Scheduled Aspirin (Aspirin) 81 Mg Tablet 81 MG PO Every Other Day (Reported) Donepezil (Donepezil) 10 Mg Tablet 20 MG PO QPM (Reported) Lactobacillus Combination No.4 (Probiotic) 1 Each Capsule 1 EACH PO DAILY ( Reported) Lisinopril (Lisinopril) 2.5 Mg Tablet 2.5 MG PO DAILY Lovastatin (Lovastatin) 40 Mg Tablet 40 MG PO QPM (Reported) Metformin (Glucophage) 1,000 Mg Tablet 1,000 MG PO BIDWM (Reported) Mirtazapine (Mirtazapine) 15 Mg Tablet 1.5 TAB PO HS (Reported) NPH, Human Insulin Isophane (HUMulin-N U100 Insulin Vial) 100 Unit/1 Ml Vial 50 UNIT SUBQ QAM (Reported) NPH, Human Insulin Isophane (HUMulin-N U100 Insulin Vial) 100 Unit/1 Ml Vial 20 UNIT SUBQ QPM (Reported) Nifedipine ER (Nifedipine ER) 60 Mg Tab.er.24 60 MG PO BID (Reported) Zolpidem (Zolpidem) 5 Mg Tablet 5 MG PO HS (Reported) General Time Seen by Provider: 05:17 Chief Complaint Mental status change Hx Obtained From: Patient, Spouse, EMS Arrived By: Ambulance Time last known well 2300 last night Sudden in Onset?: Yes Symptom Duration: Intermittent Progression Since Onset: Intermittent Severity: Current: No pain currently Severity: Maximum: No pain Recent Healthcare: Recent doctor visit Similar Sx Previous: No Risk Factors NIH Stroke Scale Level of Consciousness: Alert and responsive (0) Open/Close Eyes/Hand Manager Wellness: Performs both tasks (0) Horizontal EO Movements: None (0) Visual Rider: No visual loss (0) Facial Palsy: Normal symmetry (0) Right Arm Motor Drift (10s): No drift 10 sec (0) Left Arm Motor Drift (10s): No drift 10 sec (0) Right Leg Motor Drift (5s): No drift 5 sec (0) Left Leg Motor Drift (5s): No drift 5 sec (0) Limb Ataxia FNF/Heel-Persaud: No ataxia (0) Sensation (Arms/Legs/Face): No sensory loss (0) Language Aphasia: No aphasia, normal (0) Dysarthria: No dysarthria, normal (0) Extinction/Inattention: No exctinct/inattent (0) NIHSS Score: 0 Time NIHSS Performed: 05:25 Date NIHSS Performed: May 22, 2016 Past Medical History Past Medical History Notes: Neurologist: Dr. Fox Past Medical History Dementia cataracts pneumonia arthritis ataxia Reports: Diabetes mellitus, Hypertension Past Surgical History Throat abscess gallbladder surgery Reports: Cholecystectomy Reports: Back/neck surgery Smoking History Unknown if Ever Smoker Social History Other Social History: Good social support, , Local resident Ambulatory Status Independent Review of Systems Review of Systems Note: Respiratory: Denies: Non-productive cough Neurologic: Reports: Problem walking, Shaking, Unable to speak, Denies: Headache, Syncope (pre-syncope) Psychiatric: Reports: Change mental status, Confusion Complete sys rev & neg: except as marked. Physical Exam Initial Vital Signs Vital Signs (First) Date Time Temp Pulse Resp B/P Pulse Ox O2 Delivery O2 Flow Rate FiO2 05/22/16 05:11 36.1 82 21 160/40 100 Room Air Initial VS: Reviewed, Vital signs normal General/Constitutional: Awake, Alert Head / Eyes: Atraumatic, Normocephalic, PERRL, EOMI Neck: Supple, Full range of motion Respiratory / Chest: Breath sounds NL, Breath sounds = bilat, No respiratory distress Cardiovascular: Heart rate NL, Regular rhythm, Heart sounds NL, No murmurs Neurologic: Oriented X3, Speech NL, No motor deficits, No sensory deficits, CN II - XII intact ENT: Airway patent, Mucous membranes moist Abdomen: Soft, Non-tender Upper Extremity / MS: No edema Lower Extremity / Pelvis / MS: No edema Skin: Color NL, Warm, Dry Psychiatric: Affect NL, Mood NL Interpretation & Diagnostics Lab Results Interpretation Result Diagram: 05/22/16 0515 Test 05/22/16 05:15 White Blood Count 6.7th/mm3 (3.8-10.1) Red Blood Count 3.82mil/mm3 (4.40-5.80) Hemoglobin 12.3g/dL (13.8-17.2) Hematocrit 36.8% (41.0-50.0) Mean Corpuscular Volume 96.3fL (81-100) Mean Corpuscular Hemoglobin 32.2pg (27.0-35.0) Mean Corpuscular Hemoglobin Concent 33.4% (32.0-37.0) Red Cell Distribution Width 13.2% (12.3-15.4) Platelet Count 224bil/L (150-400) Neutrophils (%) (Auto) 77.2% (40-74) Lymphocytes (%) (Auto) 13.5% (14-46) Monocytes (%) (Auto) 7.9% (4-12) Eosinophils (%) (Auto) 1.0% (0-5) Basophils (%) (Auto) 0.1% (0-3) ECG Interpretation Interpreted by: ED physician Normal ECG Interpretation: Normal rate (92), Normal sinus rhythm CT Head Interpretation Impression: No CT evidence of hemorrhage, mass or acute infarct. at 0526 Study: Head CT no contrast Interpretation / Wet Read by: Interpret - Radiologist Re-Eval/Medical Decision Med Decision/Clinical Course 5-year-old male who was last seen normal at 2300 hrs. yesterday. His awakened to him snoring loudly and unresponsive. Sugar was 40. He was given IV glucose and fed and his sugar came up to 160s and his sensorium normalized. However since that time he has had 2 episodes of confusion unassociated with hypoglycemia. Here in the emergency room he was witnessed to have what appeared to be a fairly short one to two-minute focal motor seizure. He was given Ativan 0.[address] scan was read as normal (a previous MRI showed a right parietal mass). His care is now being turned over at change of shift to Dr. Sugey Miles for further evaluation and neurologic consultation. Source of Hx: Old records Re-Evaluation/Progress : Time of Eval: 05:35 Re-Evaluation/Progress Note: Rechecked patient. Called into room due to change in patient's mental status. Patient found to have a leftward gaze and turns body to the left, reaching out to grab things. He has shaking of the upper torso and left shoulder girtle, not responding. One minute later the patient is back to normal. Patient denies headache. Discussed CT results with the patient and the patient's . Will call Dr. Fox to construct a plan. Counseled Regarding: Diagnosis, Lab results Patient Discharge & Departure Shift Change Sign-Out Patient Care Transferred: Yes Discussed Complaint(s): Yes Laboratory Evaluation: Done, results pending Imaging Studies: Imaging discussed Awaiting neurology consult Impression: Primary Impression: Seizure disorder, focal motor Referrals: Suhas Fisher MD (PCP) Care Transferred to: Dr. Bright Care Transferred at: 06:28 Scribe Attestation Portions of this note were transcribed by Vidhya Ponce and Nidia Luu. I, Dr. Montoya personally performed the history, physical exam and medical decision-making; I reviewed and confirmed the accuracy of the information in the transcribed note. Signed by: Vidhya Luu, Blanca, and [phone] copies to: Suhas Fisher MD, Howard L MD May 22, 2016 05:16 Pearl Ponce May 22, 2016 05:23 Nidia Luu May 22, 2016 06:08
[2016-05-22 05:27] LABS: BASOPHILS % (AUTO) 0.1 % (0-3); MONOCYTES % (AUTO) 7.9 % (4-12); Mean Corpuscular Hemoglobin 32.2 pg (27.0-35.0); Mean Corpuscular Volume 96.3 fL (81-100); NEUTROPHILS % (AUTO) 77.2 % (40-74); Platelet Count 224 bil/L (150-400)
[2016-05-22] MEDS ORDERED: levETIRAcetam Inj 1,000 MG in IV Premix 1 EACH IV ONE (06:05)
[2016-05-22 06:50] LABS: INR 0.97 ratio
[2016-05-22 07:09] LABS: TROPONIN T 0.01 ug/L (0.0-0.011)
[2016-05-22] MEDS ORDERED: Fosphenytoin Inj 1,000 mgPE in 0.9% Sodium Chloride 50 ML IV ONE (07:55)
[2016-05-22] MEDS ORDERED: MGPE IV ONE ×2 (08:20→08:45)
[2016-05-22] MEDS ORDERED: FOSPHENYTOIN IV ONE ×2 (08:20→08:45)
[2016-05-22] MEDS ORDERED: SODIUM CHLORIDE 0.9% IV ONE ×2 (08:20→08:45)
--- NOTE | 2016-05-22 08:31 | DRSVH ---
PROCEDURE: CT BRAIN (TPA) ([id number]) INDICATIONS: Stroke TECHNIQUE: Noncontrast 4.5 mm thick angled axial sections acquired from the foramen magnum to the vertex, with c oronal reformats. COMPARISON: [facility], MR, MR BRAIN WO CON, 07/16/2015, 19:04. FINDINGS: Image quality: Excellent. CSF spaces: Basal cisterns are patent. No extra-axial fluid collections. The ventricles are symmet ce in size and shape. Brain: No intracranial bleeds or masses. There is cerebral volume loss for age, with resultant vent ricular and sulcal prominence. There are periventricular and deep white matter chronic small vessel ischemic changes. There is intracranial internal carotid artery atherosclerosis. Skull and face: Calvarium and visualized facial bones appear intact, without suspicious lesions. Sinuses: Visualized sinuses and mastoids are clear. IMPRESSION: 1. No acute intracranial process. 2. Moderate atrophy and chronic microvascular ischemic changes. This study fulfills neurological imaging criteria for inclusion or exclusion of acute stroke therapie s based on available published neurological guidelines. Dictated by: Chante Rodriguez M.D. on 05/22/2016 at 8:29 Approved by: Chante Rodriguez M.D. on 05/22/2016 at 8:30
[2016-05-22] MEDS ORDERED: Ondansetron 2 mg/mL 2 mL Inj IVPUSH PRN ×2 (08:50→13:40)
[2016-05-22] MEDS ORDERED: Alum-Mag Hydrox-Simeth 30 mL Suspension PO PRN ×2 (08:50→13:40)
--- NOTE | 2016-05-22 09:51 | NUR ---
QUARTER INSPECTOR consultation received. Pt was minimally responsive and not appropriate for PO trials at time of attempt. Discussed with ED RN, who was in agreement. QUARTER INSPECTOR will eval when appropriate.
[2016-05-22 10:35] LABS: APPEARANCE,URINE CLEAR (CLEAR,HAZY); COLOR,URINE YELLOW (YELLOW); OCCULT BLOOD,URINE NEGATIVE (NEGATIVE); UROBILINOGEN,URINE NORMAL (NORMAL)
--- NOTE | 2016-05-22 11:48 | PCM.CHPMED ---
Subjective Date of Service: May 22, 2016 Provider requesting consult: Juan Bright DO Primary Physician: Admitting Physician: Earnest Colbert Primary Care Physician: Suhas Fisher MD Attending Physician: Earnest Colbert Admit Status: From the Emergency Department, Full Admit Chief Complaint: Chief Complaint: Altered Mental Status. . History of Present Illness: Neurology Consultation Note: Attending Dr. 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 His last known normal per EMS was around 2300 on 05/21/2016. Due to the patient's clinical status the entire history of present illness was obtained from the patient's . She reports that around 3 AM she awoke due to her making "funny sounds" i.e. moaning, coughing, and gurgling. She reports that he may have possibly been shaking or moving as the bed seemed to be moving but it is somewhat unclear as she had just awoken. She reports that she was unable to arouse her , therefore, she called EMS. Upon EMS arrival, the patient was found to be extremely hypoglycemic with a blood glucose of 40. He was given glucose and IV fluids. After EMS left, the patient went to the bathroom and his found him holding onto the toilet staring blankly. She reports that he was confused and unable to go to the bathroom due to the confusion. 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 Once he sat down he began shaking subtly (not violently) and had muscle rigidity, therefore, she decided to call EMS once again. She reports that he has had 4-5 episodes of nonresponsiveness and shaking here at the hospital witnessed by the ER physicians. Of note, she reports that the patient has fallen since his last office visit with Dr. Patel. The fall was unwitnessed and she does not believe that he lost consciousness, however, he does not remember the fall. She took her at that time to the ER for which they performed a CT brain without contrast which showed no acute intracranial process. The patient is arousable but very somnolent likely secondary to antiepileptics administered. He is able to report that he is in no pain and denies headache, chest pain, and abdominal pain. He does wince to suprapubic pressure and reports mild discomfort. He also endorses mild shortness of breath. The rest of his review of systems was unobtainable due to somnolence. Vital signs in the ER: Temperature 36.1. Pulse 82. Respiratory rate 21. Blood pressure 160/40. Pulse ox 90% on room air. He was given lorazepam 2 mg IV total, a loading dose of Keppra 1000 mg IV 1, and a loading dose of fosphenytoin 1500 mg IV total. PCP is Dr. Suhas Fisher. Neurologist is Dr. patel. . Review of Systems: A comprehensive review of systems was conducted with the patient and found to be negative except as above in the History of Present Illness. . PMH Past Medical History 1. Right extra axial temporoparietal lobe mass likely senior sales representative of meningioma. 2. Cognitive impairment with ataxia. 3. Early onset dementia. 4. Hypertension. 5. Hyperlipidemia. 6. Diabetes mellitus type II, insulin using, with diabetic retinopathy. 7. Major depressive disorder. . Bedside Blood Glucose: 166 Surgical History 1. Throat abscess drainage as a child. 2. Cholecystectomy. 3. Back fusion (thoracic?). . Home Medications Aspirin 81 mg every other day. Donepezil 20 mg every afternoon. Lisinopril 2.5 mg daily. Lovastatin 40 mg every afternoon. Metformin 1000 mg twice a day with meals. Mirtazapine 1.5 mg daily at bedtime. NPH 50 units subcutaneous every morning and 20 units every evening. Nifedipine ER 60 mg twice a day. Zolpidem 5 mg daily at bedtime. . Allergies: Coded Allergies: No Known Allergies (Verified Allergy, Unknown, 03/05/16) Family History Family History No family history of seizures or brain tumors. . Social History Hx Alcohol Use: Yes (1-2 times a year)Hx Substance Use: No Smoking Status: Former Smoker (quit in 1978, 1 PPD 30 years) Additional Information The patient has been for 38 years. He has 4 children (3 daughters and 1 son) total but only 1 of which is a biological daughter. He was formerly the [employer]. . Exam Vital Signs Vital Sign - Last Date Time Temp Pulse Resp B/P Pulse Ox O2 Delivery O2 Flow Rate FiO2 05/22/16 10:42 71 05/22/16 10:21 36.7 20 134/75 98 Room Air Additional Information: General: Elderly gentleman lying in bed and in no acute distress, well-developed , well-nourished, somnolent, mild apnea. HEENT: Normocephalic, atraumatic. External ears without defect. Pupils small 2mm , equal, round, and reactive to light. Anicteric sclerae, moist conjunctivae, and no lid lag. Neck: Supple. No jugular venous distension. No bruits. No lymphadenopathy or thyromegaly. Cardiovascular: Regular rate and rhythm without murmurs, rubs, or gallops appreciated. Pulmonary: Clear to auscultation bilaterally in anterior lung [place], no crackles, wheezes, or rhonchi. Normal respiratory effort with no use of accessory muscles. Mild apnea. Abdomen: Bowel tones present. Soft, nontender, nondistended. No hepatosplenomegaly or masses appreciated. Extremities: No clubbing, cyanosis, or edema. Skin: Normal temperature, turgor, and texture; no rash, ulcers, or subcutaneous nodules appreciated. Neurological: The patient is somnolent but mildly arousable. Neurologic exam is unobtainable as patient is unable to participate due to somnolence. . Lab and Diagnostics Labs Item Value Date Time Urine Color Yellow 05/22/16 1000 Urine Appearance Clear 05/22/16 1000 Urine pH 6.0 05/22/16 1000 Urine Specific [place] 1.020 05/22/16 1000 Urine Protein Trace mg/dL 05/22/16 1000 Urine Glucose (UA) 100 mg/dL 05/22/16 1000 Urine Ketones Negative mg/dL 05/22/16 1000 Urine Occult Blood Negative 05/22/16 1000 Urine Nitrite Negative 05/22/16 1000 Urine Bilirubin Negative 05/22/16 1000 Urine Urobilinogen Normal mg/dL 05/22/16 1000 Urine Leukocyte Esterase Negative 05/22/16 1000 Urine RBC 0-2 /hpf 05/22/16 1000 Urine WBC 0-5 /hpf 05/22/16 1000 Urine Epithelial Cells Occasional /hpf 05/22/16 1000 Urine Crystals None seen 05/22/16 1000 Urine Bacteria Few /hpf 05/22/16 1000 Urine Hyaline Casts None /lpf 05/22/16 1000 Urine Granular Casts None seen 05/22/16 1000 Urine Waxy Casts None seen 05/22/16 1000 Urine Red Blood Cell Casts None seen 05/22/16 1000 Urine White Blood Cell Casts None seen 05/22/16 1000 Urine Mucus Present 05/22/16 1000 Urine Trichomonas None seen 05/22/16 1000 Urine Yeast None 05/22/16 1000 Urinalysis Comment None 05/22/16 1000 Urine Culture Reflexed Not indicated 05/22/16 1000 Item Value Date Time Prothrombin Time 10.4 sec 05/22/16 05 Prothromb Time International Ratio 0.97 ratio 05/22/16514 Activated Partial Thromboplast Time 26.8 sec 05/22/16 05 Item Value Date Time Calcium Level 9.3 mg/dL 05/22/16 05 Total Bilirubin 0.3 mg/dL 05/22/16 05 Aspartate Amino Transf (AST/SGOT) 27 U/L 05/22/16 0515 Alanine Aminotransferase (ALT/SGPT) 19 U/L 05/22/16 0515 Alkaline Phosphatase 177 U/L H 05/22/16 05 Troponin T 0.010 ug/L 05/22/16 0515 Total Protein 7.8 g/dL 05/22/16 0515 Albumin 4.3 g/dL 05/22/16 0515 Result Diagram: 05/22/1615 05/22/16 05 X-Rays, CTs and MRIs CT BRAIN (TPA) IMPRESSION: 1. No acute intracranial process. 2. Moderate atrophy and chronic microvascular ischemic changes. This study fulfills neurological imaging criteria for inclusion or exclusion of acute stroke therapies based on available published neurological guidelines. Dictated by: Chante Rodriguez M.D. on 05/22/2016 at 8:29 Approved by: Chante Rodriguez M.D. on 05/22/2016 at 8:30 . 12-lead ECG EKG: Sinus rhythm, heart rate 92, normal axis, borderline prolonged QTC interval at 456 ms, otherwise normal intervals, normal R-wave progression, no pathological Q waves, minor ST depression in leads II, III, aVF, V4-5. . 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 Assessment: 1. Acute encephalopathy, present on admission. Active. Impression: The patient presented with several episodes of brief unresponsiveness with witnessed subtle shaking and muscle rigidity. The patient has a history of a right extra-axial temporoparietal lobe mass thought to be senior sales representative of a meningioma with recent brain MRI on 05/10/2016 showing mild mass effect. His logical symptoms and size of brain mass has been monitored closely by Dr. Patel and he has been referred to neurosurgery at the [facility] for consultation regarding surgical removal. CT brain without contrast today shows no acute intracranial process. The patient was loaded with Keppra but continued to have episodes of unresponsiveness, subtle shaking, and muscle rigidity, therefore, he was given fosphenytoin at the recommendation of Dr. Patel. Differential diagnosis includes: Mass effect with secondary focal epilepsy versus status epilepticus. Recommendations: 1. Obtain EEG to assess for epileptiform foci. 2. We will order a MRI brain with and without contrast to monitor right extra- axial temporoparietal lobe mass with previously demonstrated mild mass effect. 3. Continue fosphenytoin 300 mg IV daily starting tomorrow. Once appropriate for PO intake may give Dilantin 300 mg PO daily. Will also check a level tomorrow morning. 4. We will consider Decadron for possible mass effect from right extra-axial temporoparietal lobe mass depending on if there is any significant change in mass effect on repeat MRI. Thank you for this most interesting consult we will continue to follow along with you. . Problems: Attending Statement The patient was seen and examined by me. I discussed the patient in detail with . Agree with above. Please feel free to contact me with any questions or concerns. Kristal Jones DO May 22, 2016 11:48 Abraham Patel MD Jun 11, 2016 13:15
[2016-05-22] MEDS ORDERED: Polyethylene Glycol (PEG) 17 Gm Powder PO PRN (13:40)
--- NOTE | 2016-05-22 14:12 | PCM.HPMED ---
Subjective Date of Service May 22, 2016 Primary Provider: Admitting Physician: Earnest Colbert Primary Care Physician: Suhas Fisher MD Attending Physician: Earnest Colbert Admit Status: From the Emergency Department Chief Complaint: Altered Mental Status. 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 History of present illness was obtained from the patient's due to patient's somnolence at the time of examination. She reports that around 3 AM she awoke due to her coughing and gurgling and shaking. She tried to wake him up but was unsuccessful so she called EMS. Upon EMS arrival, the patient was found to be hypoglycemic with a blood glucose of 40. He was given glucose and IV fluids. Later that night, the patient went to the bathroom and his found him being very confused holding onto the toilet staring blankly. At that time he had another episode of shaking muscle rigidity that scared her a lot so she called EMS once again. Patient was brought to the Emergency Department where he continued to have a few more episodes of nonresponsiveness and shaking. Patient does not have prior history of seizures. A few weeks prior to this admission he had an unwitnessed fall after which he began to complain of back pain which was relatively well controlled with Tylenol at home. His appetite was decreased as well and he was complaining of just not feeling well. Otherwise she denies chills, fever, headaches, vision changes, chest pain, shortness of breath, nausea, vomiting, diarrhea, difficulties urinating or other symptoms in her . In the Emergency Department, his vital signs were: temperature 36.1, pulse 82 , respiratory rate 21, blood pressure 160/40. Pulse ox 90% on room air. He was given lorazepam 2 mg IV total, loading dose of Keppra 1000 mg IV 1, and fosphenytoin 1500 mgpe IV total. He had CT brain which was negative for acute intracranial process. EKG revealed sinus rhythm, heart rate 92. PCP is Dr. Suhas Fisher. Neurologist is Dr. patel. Review of Systems: A comprehensive review of system has been conducted with the patient and his and found to be negative except what has been mentioned in History of Present Illness. Allergies Coded Allergies: No Known Allergies (Verified Allergy, Unknown, 03/05/16) Home Medications Scheduled Aspirin (Aspirin) 81 Mg Tablet 81 MG PO Every Other Day (Reported) Donepezil (Donepezil) 10 Mg Tablet 20 MG PO QPM (Reported) Lactobacillus Combination No.4 (Probiotic) 1 Each Capsule 1 EACH PO DAILY ( Reported) Lisinopril (Lisinopril) 2.5 Mg Tablet 2.5 MG PO DAILY Lovastatin (Lovastatin) 40 Mg Tablet 40 MG PO QPM (Reported) Metformin (Glucophage) 1,000 Mg Tablet 1,000 MG PO BIDWM (Reported) Mirtazapine (Mirtazapine) 15 Mg Tablet 1.5 TAB PO HS (Reported) NPH, Human Insulin Isophane (HUMulin-N U100 Insulin Vial) 100 Unit/1 Ml Vial 50 UNIT SUBQ QAM (Reported) NPH, Human Insulin Isophane (HUMulin-N U100 Insulin Vial) 100 Unit/1 Ml Vial 20 UNIT SUBQ QPM (Reported) Nifedipine ER (Nifedipine ER) 60 Mg Tab.er.24 60 MG PO BID (Reported) Zolpidem (Zolpidem) 5 Mg Tablet 5 MG PO HS (Reported) PMH Right extra axial temporoparietal lobe mass likely labor service representative of meningioma Dementia Cataracts Arthritis Ataxia Diabetes mellitus type 2, insulin using with diabetic retinopathy Hypertension Hyperlipidemia Surgical History Throat abscess in childhood Cholecystectomy Back/neck surgery Family History No family history of seizures or brain tumors Social History Hx Alcohol Use: Yes (1-2 times a year) Hx Substance Use: No Smoking Status: Former Smoker (quit in 1978, 1 PPD 30 years) Living Arrangement: with Family Exam Vital Signs Vital Sign - Last Date Time Temp Pulse Resp B/P Pulse Ox O2 Delivery O2 Flow Rate FiO2 05/22/16 10:42 71 05/22/16 10:21 36.7 20 134/75 98 Room Air Exam General/Constitutional: Well nourished, well developed in no acute distress Head / Eyes: Atraumatic, Normocephalic, keeps eyes closed for the most part Neck: Supple Respiratory / Chest: Breath sounds NL bilaterally, no respiratory distress Cardiovascular: Regular rate and rhythm, no murmurs Neurologic: somnolent, slurred speech ENT: Airway patent, mucous membranes moist Abdomen: Soft, Non-tender Extremities: No edema Skin: Warm, Dry Lab and Diagnostics Result Diagram: 05/22/1651405/22/16514 X-Rays, CTs and MRIs CT BRAIN (TPA) IMPRESSION: 1. No acute intracranial process. 2. Moderate atrophy and chronic microvascular ischemic changes. Dictated and approved by: Chante Rodriguez M.D. on 05/22/2016 at 8:29 MRI BRAIN pending 12-lead ECG Interpreted by: ED physician Normal ECG Interpretation: Normal rate (92), Normal sinus rhythm Assessment & Plan Suhas Herrera is an 85 year old male with a history of an extra-axial mass in the right temporoparietal lobe, dementia, hypertension and diabetes mellitus who presented to [facility] Emergency Department via EMS due to multiple brief episodes of altered mental status. Patient was admitted for evaluation and treatment seizure like activity. 1. Focal versus generalized seizures, present on admission. 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 Recent Brain MRI revealed mild mass effect. Patient has been evaluated at the [facility] for possible surgical removal. He was recommended to follow up in one year. -Patient is being followed by Dr. Patel and has been evaluated by him on admission -CT brain negative. MRI brain pending -EEG pending -Keppra 100 mg BID -Fosphenytoin, maintenance dose, 100 mgPE IV every 8 hours. Will adjust dose based on treatment response and serum levels -Lorazepam, 1 mg IV every 4 hours as needed -NS IV @ 100 ml/hr -Speech evaluation -NPO for now 2. Altered mental status due to postictal state and medications , present on admission. Active -See #1 3. Diabetes mellitus, present on admission. Active -On Metformin and NPH at home. Will hold home medications -Nutritional and low dose correctional sliding scale 4. Hypertension, present on admission. Improved. -Will hold his home blood pressure medications for now 5.episode of hypoglycemia -glucose reportedly 40 when EMS arrived initially -hold off standing dose of insulin and will use sliding scale for now 6.dementia Full code Inpatient status Pain Evaluation: Adequate Pain Control GI Prophylaxis: Proton Pump Inhibitor VTE Prophylaxis: Sub-Q Heparin (Unfractionated) Resuscitation Status: CPR: Attempt Resuscitation Attending Statement The patient was seen and examined together with Dr. Kohler on 05/22/2016 and I agree with the history, exam and plan as outlined in the note above. Gloria Kohler DO May 22, 2016 14:12 Santiago Hansen MD May 23, 2016 06:55
--- NOTE | 2016-05-22 15:30 | DRSVH ---
PROCEDURE: MRI SEIZURE BRAIN WITH AND WITHOUT CONTRAST ([id number]) INDICATIONS: NEW ONSET SEIZURE TECHNIQUE: Noncontrast axial T1 spin echo, axial T2 fast spin echo, sagittal and axial FLAIR, axial gradient ech o, axial diffusion and ADC, coronal thin-slice T2 FSE through the brain. Optional contrast, followed by axial and coronal 3D VIBE or T1 spin echo with fat saturation sequences through the brain. COMPARISON: [facility], MR, MR BRAIN WO CON, 07/16/2015, 19:04. [facility], CT, BRAIN (TPA), 05/22/2016, 5:19. [facility], MR, MR BRAIN W&WO CON, 05/10/2016, 7:56. FINDINGS: Image quality: There are significant motion artifacts degrading images. CSF spaces: Basal cisterns are patent. No extra-axial fluid collections. Ventricles are normal in size and shape. Brain: Again noted is a 2.4 x 3.2 x 2.6 cm extra-axial mass in the right posterior temporoparietal re gion, which demonstrates morphology and signal characteristics compatible with a meningioma. There is mild mass effect adjacent brain. No midline shift. There is no significant interval change from the last examination dated 05/10/2016. No intracranial bleeds. There is mild cerebral volume loss for ag e. There are mild periventricular white matter chronic small vessel ischemic changes. The brainstem appears normal. Diffusion-weighted images demonstrate no acute ischemic insults. No chronic ischem ic insults. Normal intravascular flow voids are present. Skull and face: Calvarial marrow is normal in signal. Orbits appear normal. Sinuses: Sinuses and mastoids appear clear. IMPRESSION: 1. Limited examination due to significant motion artifacts. 2. Stable right posterior temporoparietal meningioma. There is mass effect to the adjacent brain but no thickened vasogenic edema. 3. Cerebral volume loss and chronic microvascular ischemic changes. Dictated by: Patricia Diallo M.D. on 05/22/2016 at 15:23 Transcribed by: ALBER on 05/22/2016 at 15:30 Approved by: Patricia Diallo M.D. on 05/22/2016 at 21:16
[2016-05-22] MEDS ORDERED: Glucose 40% Oral Gel 15 Gm Tube PO PRN (16:20)
[2016-05-22] MEDS ORDERED: 0.9% Sodium Chloride 1,000 ML IV SCH (16:25)
--- NOTE | 2016-05-22 17:28 | NUR ---
charted wrong vitals Addendum: 05/22/16 at 1729 by MATTHIAS WHYTE CNA Amended: Links added.
[2016-05-22] MEDS: Insulin LISPRO 300 Unit/3 mL Inj SUBQ SCH ×2 (17:30→22:00)
--- NOTE | 2016-05-22 18:27 | NUR ---
Case Management: IMM explained to patients spouse at 1750, all questions answered. Signed original placed in chart, copy given to spouse. Bri Preciado RN
--- NOTE | 2016-05-22 19:25 | NUR ---
Mentation/Blood glucose No apparent signs of cardiac distress. Tele SR 70s with noectopy. BP within normal limits. No apparent signs of respiratory distress. SPO2 on RA mid to high 90s. Unable to follow commands for deep breathing. No cough noted. No vomiting or diarrhea, no abdominal pain with light palpation. Brief on, incontinent.Patient wakes to voice and touch but not consistently. Patient has had 3 seizures since arrival to unit, eyes fixed, teeth clenched and will not respond-- MD aware. Seizure pads in place. Speech is mumbled and incoherent. 1730 BG was 39-- 25mls of D50 given, rechecked and BG at 102. Per , received no insulin/oral diabetic agents since last night. MD consulted, D5NS started at 75mls per hour.
--- NOTE | 2016-05-22 21:45 | NUR ---
Mentation Pt's speech is mumbled and unrecognizable. At times, small sentences are understood. Pt is understanding questions but not able to verbalize back. Pt in and out of sleep, wakes up when spoken to.
[2016-05-22] MEDS ORDERED: Glucose 40% Oral Gel 15 Gm Tube PO SCH (22:15)
[2016-05-22] MEDS: Dextrose 5% 0.9% NaCl 1,000 ML IV SCH (22:53)
[2016-05-22] MEDS: levETIRAcetam Inj 1,000 MG in IV Premix 1 EACH IV SCH (22:54)
--- NOTE | 2016-05-22 22:55 | NUR ---
BG Pt's BG at 65. IV push of 25 grams of glucose given. BG rechecked and at 115 currently. Pt has no s/sx of hypoglycemia.
[2016-05-22] MEDS: Heparin 5,000 Unit/mL Inj SUBQ SCH (23:00)
--- NOTE | 2016-05-22 23:15 | CONS ---
[address] [address] CONSULTATION REPORT PATIENT: GRAEME ESPINAL : 1930 MR#: [id number] ADMIT: 05/22/2016 JOB ID: [id number] DATE OF SERVICE: 05/22/2016 NEUROLOGY CONSULTATION: REQUESTING PROVIDER: Juan Trujillo DO. HISTORY OF PRESENT ILLNESS: The patient is a very pleasant 85-year-old man who I follow as an outpatient in my clinic for dementia, who also has a history of an extra-axial mass in the right temporal lobe in addition to hypertension and diabetes mellitus type 2, who was admitted after multiple brief episodes of altered mental status. Last known normal status was 23:00 last night. woke him up in the morning after hearing him snoring abnormally. Found to be alert. EMS was called. EMS found the blood sugar level was 40. He was given an amp of D50 and was left drinking juice and eating a sandwich. His repeat blood glucose was 160. His noted that he had difficulty walking, was confused, and appeared to have an episode of syncope. When EMS arrived, he was again back at baseline. En route to the emergency department he had another episode of altered mental status. He was noted to have episodes suspicious for seizures. He did have a magnetic resonance imaging study of his brain performed, which I reviewed, demonstrating a 2 x 4 x 3 x 2 x 2.6 cm extra-axial mass in the right posterior temporoparietal region which demonstrated morphology and signal characteristics compatible with a meningioma. There was mild mass effect in the adjacent brain. No midline shift. No significant interval change from last examination. No intracranial bleeding was noted. Mild cerebral volume loss for age was noted. Mild periventricular white matter chronic small vessel ischemic changes were noted. The brainstem appeared normal. Diffusion weighted imaging demonstrated no acute ischemic insults, no chronic ischemic insults. Normal intravascular flow voids were present. I reviewed this in detail with Dr. Maritza Ghosh. His CT of the head demonstrated no acute intracranial process. Moderate atrophy and chronic microvascular ischemic changes were noted. He also was noted to have chronic ataxia.He was also noted to have multiple episodes of altered mental status and shaking associated with muscle rigidity, 4-5 episodes of nonresponsiveness and shaking that were noted at the hospital witnessed by emergency department physicians. Reportedly, the patient did fall after his last office visit with me and was evaluated in the emergency department, and the computed tomography scan of his brain without contrast was performed which demonstrated no acute intracranial process. Initially, he was given Keppra 1000 mg IV. This was followed by a loading dose of fosphenytoin. He was noted to be afebrile in the emergency department. REVIEW OF SYSTEMS: A complete review of systems could not be performed secondary to the patient's mental status. However, his is at the bedside and she reports that other than above noted he has been in his normal state of health. LABORATORY STUDIES: WBC of 6.7, hemoglobin 12.3, hematocrit 36.8, platelets of 224. Sodium 138, potassium 4.0, chloride was 99, bicarb 21, BUN 33, creatinine 1.23, glucose 161. Alkaline phosphatase 177. PT was 10.4, INR 0.97, PTT was 26.8. Urinalysis demonstrated urine color is yellow and clear, trace urine protein, negative leukocyte esterase, occasional urine epithelial cells, few bacteria. Urine mucus was present. 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 Bedside glucose 166. SURGICAL HISTORY: Status post throat abscess as a child, status post cholecystectomy, status post back fusion. HOME MEDICATIONS: Include: 1. Aspirin 81 mg. 2. Donepezil 20 mg. 3. Lisinopril 2.5 mg. 4. Lovastatin 40 mg. 5. Metformin 1000 mg twice daily with meals. 6. Mirtazapine 1.5 mg daily at bedtime. 7. NPH 50 units subcutaneous every morning and 20 units subcutaneous every evening. 8. Nifedipine extended-release 60 mg twice daily. 9. Zolpidem 5 mg daily at bedtime. ALLERGIES: No known drug allergies. FAMILY HISTORY: No family history of any neurologic disorders. SOCIAL HISTORY: Occasional alcohol. No drugs. No smoking. PHYSICAL EXAMINATION: Temperature 36.6, pulse of 79, respiratory rate of 19, blood pressure 120/70, pulse oximetry 96% on room air. Patient appears drowsy, however, was responsive to vocal stimuli and did open his eyes, however, did not follow commands. He did not know the date or location or his name. He did not follow complex commands. He appeared to be lethargic. Pupils equal, round, reactive to light. Extraocular movements were smooth and conjugate with no evidence of nystagmus. When examined by doll's eye maneuver, face appeared symmetrical. Facial sensation could not be assessed due to patient's mental status. Tongue was midline. Sternocleidomastoid and trapezii could not be assessed due to patient's mental status. Patient's speech did appear dysarthric and confused. It is unclear if he is aphasic given his lethargic mental status examination. Coordination could not be assessed due to his mental status. Motor examination: He moves all four extremities spontaneously. Sensory: He withdraws to noxious stimuli symmetrically. Deep tendon reflexes symmetrical throughout. Plantars were equivocal bilaterally. Gait was deferred. As noted, the patient did appear to be lethargic and only mildly arousable. EKG: Sinus rhythm, heart rate 92, normal axis, borderline prolonged QTc interval 456, otherwise normal intervals, normal, R-wave progression. No pathologic Q-waves. Minor ST depression in leads II, III, aVF and V4-V5. IMPRESSION: Sudden onset of change in mental status with multiple episodes of transient neurologic activity characterized by altered mental status and shaking. Differential diagnosis does include an ictal etiology, cerebrovascular etiology such as a stroke, transient ischemic attack, as well as toxic metabolic encephalopathy and encephalopathy due to multiple medical problems or medication side effects. An infectious etiology appears unlikely given the absence of any symptoms suggestive of an infection such as fever, chills, or neck stiffness. His white blood cell count is not elevated. His reports that he has not had any symptoms suggestive of an infectious illness recently. Given his clinical history and examination, my concern is for the possibility of new onset seizure disorder. I have recommended that he continue on Dilantin 300 mg daily and check a Dilantin level in the morning. If there is no improvement in his mental status, I do recommend consideration of a lumbar puncture, although he does not have a white blood cell count or any neck rigidity, he did not have a Kernig sign or Brudzinski sign on examination. He does have a mass lesion and has been referred to the [facility] for consultation regarding possible surgical removal, however, at this point, it does appear to be stable with mild mass effect, which appears unchanged when compared to the prior study. There is no vasogenic edema noted. I did review the electroencephalogram which did not demonstrate any evidence of ongoing ictal activity. I do recommend a repeat electroencephalogram tomorrow morning if there is no significant change in his mental status. I do recommend continued close monitoring with neuro checks for the possibility of another seizure. At this point, based on the electroencephalogram, it does not appear that he is in status epilepticus. I do though recommend Keppra 1000 mg b.i.d. in addition to the Dilantin. Will adjust the fosphenytoin based on Dilantin level tomorrow morning. Although Decadron is certainly another potential therapy, there has been no evidence of vasogenic edema on the repeat magnetic resonance imaging study of his brain. I do also recommend attempting to exclude any potential toxic and metabolic etiologies for his change in mental status. I did review in detail his magnetic resonance imaging study of the brain with Dr. Maritza Ghosh. There is no evidence of an acute cerebrovascular lesion such as a stroke and no evidence suggestive of a transient ischemic attack. Given the fact that normal intravascular flow voids are present and that the brainstem appears normal, a cerebrovascular etiology involving the posterior circulation and brainstem is excluded based on this study. In the event that there should be a change in mental status, I do recommend a repeat imaging study. Although certainly a brain stem cerebrovascular accident or posterior circulation related cerebrovascular accident could present in a similar fashion , this has been excluded by a magnetic resonance imaging study of the brain with and without contrast demonstrating a normal brainstem with the appearance of normal flow voids that is normal posterior circulation. Recommend continued seizure and fall precautions. In the event that he continues to have seizures despite being on fosphenytoin and levetiracetam, I would consider transfer to a tertiary center with potential for continuous video electroencephalography monitoring. Will continue to follow. Thank you again Dr. Trujillo for allowing me to participate in the care of this delightful patient. I do follow with him in the clinic. Please also see the note by Dr. Kristal Jones. The patient was evaluated with the resident and I agree with the resident's note. MANJIT
[2016-05-22] MEDS: Fosphenytoin Inj 100 mgPE in 0.9% Sodium Chloride 50 ML IV SCH (23:23)
--- NOTE | 2016-05-23 01:33 | PROCED ---
[address] [address] EEG PATIENT: GRAEME ESPINAL : 1930 MR#: [id number] ADMIT: 05/22/2016 JOB ID: [id number] DATE OF SERVICE: 05/22/2016 HISTORY: The patient is an 85-year-old man with an episode of loss of consciousness. Since this, he has had multiple episodes of body shaking and confusion, initially noted to have a low blood sugar. Episodes of intermittent seizure-like activity with concern for seizures. TECHNICAL DESCRIPTION: This digital EEG was recorded using 25 scalp and ear, and two EKG electrodes. It was reviewed in bipolar and referential montages following reformatting in the 10-[employer]de [employer] System. During the recording, the patient was noted to be awake, drowsy, and asleep. He did appear confused throughout the recording. There was abundant myogenic and movement artifact. No seizures were seen. The background was composed of a polymorphic mixture of theta and faster frequencies. There was a posterior dominant rhythm that appeared symmetrical at 6-7 hertz, 10-20 microvolts, symmetrical and reactive to eye opening. The rest of the background was composed of low voltage faster frequencies. There was abundant frontally predominant beta activity throughout this recording. Hyperventilation was not performed. Photic stimulation could not be assessed due to technical difficulties. Although there was intermittent myogenic and movement artifact associated with restlessness, none of this was clearly epileptiform in nature. There were no focal, lateralized, or epileptiform discharges noted. There were no seizures seen. The EKG rhythm strip revealed a heart rate of 60-80 beats per minute, with no apparent arrhythmias. Sleep was characterized by the attenuation of the alpha rhythm and the appearance of symmetrical vertex waves, heralding stage 1 of sleep. I did not appreciate stage 2 of sleep. IMPRESSION: This electroencephalogram performed in the awake, drowsy, and asleep states is abnormal. The slow background is suggestive of mild cerebral cortical dysfunction/encephalopathy. This is a nonspecific finding and may be seen in a wide variety of different clinical conditions, including toxic, metabolic, hypoxic, inflammatory, autoimmune, and infectious states. It may also be seen as a medication side effect. Clinical correlation is advised. MTDD
[2016-05-23 04:35] VITALS: PULSE 73
[2016-05-23 05:04] LABS: BASOPHILS % (AUTO) 0.3 % (0-3); EOSINOPHILS % (AUTO) 5.7 % (0-5); MONOCYTES % (AUTO) 7.6 % (4-12); Mean Corpuscular Hemoglobin 32.6 pg (27.0-35.0); Mean Corpuscular Volume 95.6 fL (81-100); NEUTROPHILS % (AUTO) 64.5 % (40-74); Platelet Count 224 bil/L (150-400)
[2016-05-23] MEDS: Insulin LISPRO 300 Unit/3 mL Inj SUBQ SCH ×4 (08:00→22:00)
[2016-05-23 08:18] VITALS: BP 149/74; PULSE 85; RESP 18; O2SAT 95
[2016-05-23] MEDS: Pantoprazole 4 mg/mL 10 mL Inj IVPUSH SCH (08:41)
[2016-05-23] MEDS: levETIRAcetam Inj 1,000 MG in IV Premix 1 EACH IV SCH ×2 (08:41→20:49)
[2016-05-23] MEDS: Dextrose 5% 0.9% NaCl 1,000 ML IV SCH ×2 (08:42→23:58)
[2016-05-23] MEDS: Heparin 5,000 Unit/mL Inj SUBQ SCH ×2 (08:42→20:50)
[2016-05-23] MEDS: Fosphenytoin Inj 100 mgPE in 0.9% Sodium Chloride 50 ML IV SCH ×3 (08:51→21:13)
--- NOTE | 2016-05-23 10:03 | PCM.PNMED ---
Subjective Date of Service May 23, 2016 Subjective Neurology Progress Note: Attending Dr. Fox Overnight: There was no seizure activity noted. The patient is lying in bed sleeping with fall precautions in place. The patient is mildly arousable. He is dysarthric and unintelligible when he tries to articulate. He is unable to follow commands. He did receive Ativan 1 mg IV this morning which may be contributing to his somnolence. Exam Vital Signs Vital Sign - Last Date Time Temp Pulse Resp B/P Pulse Ox O2 Delivery O2 Flow Rate FiO2 05/23/16 08:18 36.8 85 18 149/74 95 Room Air 05/22/16 23:26 2.00 Intake and Output 05/22/16 05/22/16 05/23/16 Cumulative From/Thru 15:00 23:00 07:00 05/22/16 05:11 - 05/22/16 18:03 Intake Total 0 ml 0 ml Balance 0 ml 0 ml Intake Oral 0 ml 0 ml # Voids 3 3 Exam General: Elderly gentleman lying in bed and in no acute distress, well-developed , well-nourished, somnolent, mild apnea. HEENT: Normocephalic, atraumatic. External ears without defect. Pupils small 2mm , equal, round, and reactive to light. Anicteric sclerae, moist conjunctivae, and no lid lag. Mucus membranes severely dry. Neck: Poor skin turgor. No jugular venous distension. No bruits. No lymphadenopathy or thyromegaly. Cardiovascular: Regular rate and rhythm without murmurs, rubs, or gallops appreciated. Pulmonary: Clear to auscultation bilaterally in anterior lung g[place], no crackles, wheezes, or rhonchi. Normal respiratory effort with no use of accessory muscles. Mild apnea. Abdomen: Soft, nontender, nondistended, bowel sounds present. Suprapubic tenderness. No hepatosplenomegaly or masses appreciated. Extremities: No clubbing, cyanosis, or edema. Skin: Normal temperature, turgor, and texture; no rash, ulcers, or subcutaneous nodules appreciated. Neurological: The patient is somnolent but mildly arousable. He is agitated while awake. He does not follow commands. He is dysarthric and speech is incoherent. Neurologic exam is unobtainable as patient is unable to participate due to somnolence and lethargy. . IVs and Medications Medications Reviewed: Medications were reviewed in detail Lab and Diagnostics Item Value Date Time Phenytoin (Dilantin) Level 12.5 uG/mL 05/23/16435 Item Value Date Time Calcium Level 9.2 mg/dL 05/23/16435 Total Bilirubin 0.4 mg/dL 05/23/16435 Aspartate Amino Transf (AST/SGOT) 23 U/L 05/23/16435 Alanine Aminotransferase (ALT/SGPT) 17 U/L 05/23/16435 Alkaline Phosphatase 166 U/L H 05/23/16435 Total Protein 6.8 g/dL 05/23/16435 Albumin 4.0 g/dL 05/23/16435 Result Diagram: 05/23/1643505/23/16435 X-Rays, CTs and MRIs CT BRAIN (TPA) IMPRESSION: 1. No acute intracranial process. 2. Moderate atrophy and chronic microvascular ischemic changes. This study fulfills neurological imaging criteria for inclusion or exclusion of acute stroke therapies based on available published neurological guidelines. Dictated by: Chante Rodriguez M.D. on 05/22/2016 at 8:29 Approved by: Chante Rodriguez M.D. on 05/22/2016 at 8:30 MRI SEIZURE BRAIN WITH AND WITHOUT CONTRAST IMPRESSION: 1. Limited examination due to significant motion artifacts. 2. Stable right posterior temporoparietal meningioma. There is mass effect to the adjacent brain but no thickened vasogenic edema. 3. Cerebral volume loss and chronic microvascular ischemic changes. Dictated by: Patricia Diallo M.D. on 05/22/2016 at 15:23 . 12-lead ECG EKG: Sinus rhythm, heart rate 92, normal axis, borderline prolonged QTC interval at 456 ms, otherwise normal intervals, normal R-wave progression, no pathological Q waves, minor ST depression in leads II, III, aVF, V4-5. . Additional Diagnostics Electroencephalogram awake/sleep IMPRESSION: This electroencephalogram performed in the awake, drowsy, and asleep states is abnormal. The slow background is suggestive of mild cerebral cortical dysfunction/encephalopathy. This is a nonspecific finding and may be seen in a wide variety of different clinical conditions, including toxic, metabolic, hypoxic, inflammatory, autoimmune, and infectious states. It may also be seen as a medication side effect. Clinical correlation is advised. Abraham Fox MD 05/22/16 1841 Assessment & Plan Suhas Herrera is an 85-year-old male with past medical history significant for right extra-axial temporoparietal lobe mass thought to represent a meningioma, secondary cognitive impairment with ataxia, hypertension, hyperlipidemia, diabetes mellitus type II, insulin using, with diabetic retinopathy who presented to [facility] via EMS due to multiple brief episodes of altered mental status. Assessment: 1. Acute encephalopathy, present on admission. Active. Impression: The patient presented with several episodes of brief unresponsiveness with witnessed subtle shaking and muscle rigidity. The patient has a history of a right extra-axial temporoparietal lobe mass thought to be passenger service representative of a meningioma with recent brain MRI on 05/10/2016 showing mild mass effect. His neurological symptoms and size of his brain mass has been monitored closely by Dr. Fox and he has been referred to neurosurgery at the [facility] for consultation regarding surgical removal for which they recommend conservative monitoring with annual MRI surveillance unless he develops severe headaches or seizures then they recommend repeating the MRI sooner. CT brain without contrast did not reveal any acute intracranial process. Repeat MRI brain with and without contrast appears to be stable with mild mass effect, which appears unchanged when compared to the prior study. There is no vasogenic edema noted. There is no evidence of an acute cerebrovascular lesion such as a stroke and no evidence suggestive of a transient ischemic attack. Given the fact that normal intravascular flow voids are present and that the brainstem appears normal, a cerebrovascular etiology involving the posterior circulation and brainstem is excluded based on this study. The electroencephalogram did not demonstrate any evidence of ongoing ictal activity. The patient was loaded with Keppra but continued to have episodes of unresponsiveness, subtle shaking, with muscle rigidity, therefore, he was given a loading dose of fosphenytoin at the recommendation of Dr. Fox. Fosphenytoin level today is 12.5. His mental status from yesterday is unchanged. His encephalopathy may be secondary to medications or a prolonged post ictal period or some combination thereof. Also recommend attempting to exclude any potential toxic and metabolic etiologies for his change in mental status. Differential diagnosis includes: Mass effect with secondary non- convulsive status epilepticus versus toxic vs metabolic vs infectious encephalopathy. Recommendations: 1. Obtain repeat EEG which has been ordered due to no significant change in his mental status. 2. At this point we would recommend transferring the patient to a tertiary center with potential for continuous video electroencephalography monitoring as the patient may be periodically seizing. 3. Continue fosphenytoin 300 mg IV daily and Keppra 1000 mg twice daily. 4. Continue seizure and fall precautions and continuous neuro checks in the mean time. Thank you for this most interesting consult we will continue to follow along with you. . GI Prophylaxis: Proton Pump Inhibitor VTE Prophylaxis: Sub-Q Heparin (Unfractionated) VTE Mechanical Devices: Intermittant Pneumatic CD Resuscitation Status: CPR: Attempt Resuscitation Attending Statement Seen and examined. Discussed with Dr. Jones. Agree with above. Kristal Jones DO May 23, 2016 10:03 Abraham Fox MD June 22, 2016 08:18
[2016-05-23 12:43] VITALS: BP 133/69; PULSE 72; RESP 22; O2SAT 96
[2016-05-23 12:56] VITALS: PULSE 83
--- NOTE | 2016-05-23 14:19 | PCM.PNMED ---
Subjective Date of Service May 23, 2016 Subjective Patient has no change in his mental status. He is hard to arouse. He is dysarthric. He is unable to follow commands. He is bed-ridden. There was no seizure activity noted overnight. Exam Vital Signs Vital Sign - Last Date Time Temp Pulse Resp B/P Pulse Ox O2 Delivery O2 Flow Rate FiO2 05/23/16 12:56 83 05/23/16 12:43 36.2 22 133/69 96 Room Air 05/22/16 23:26 2.00 Intake and Output 05/22/16 05/22/16 05/23/16 Cumulative From/Thru 15:00 23:00 07:00 05/22/16 05:11 - 05/22/16 18:03 Intake Total 0 ml 0 ml Balance 0 ml 0 ml Intake Oral 0 ml 0 ml # Voids 3 3 Exam General/Constitutional: Well nourished, well developed in no acute distress, somnolent elderly gentleman Head / Eyes: Atraumatic, Normocephalic, keeps eyes closed for the most part Neck: Supple, No lymphadenopathy or thyromegaly. Respiratory / Chest: Breath sounds clear bilaterally, no respiratory distress Cardiovascular: Regular rate and rhythm, no murmurs Neurologic: somnolent, mildly arousable, incoherent speech, does not follow commands ENT: Airway patent, mucous membranes moist Abdomen: Soft, Non-tender Extremities: No edema Skin: Warm, Dry Lab and Diagnostics Result Diagram: 05/23/16 0436 05/23/16 0436 X-Rays, CTs and MRIs CT BRAIN (TPA) IMPRESSION: 1. No acute intracranial process. 2. Moderate atrophy and chronic microvascular ischemic changes. This study fulfills neurological imaging criteria for inclusion or exclusion of acute stroke therapies based on available published neurological guidelines. Dictated by: Chante Rodriguez M.D. on 05/22/2016 at 8:29 Approved by: Chante Rodriguez M.D. on 05/22/2016 at 8:30 MRI SEIZURE BRAIN WITH AND WITHOUT CONTRAST IMPRESSION: 1. Limited examination due to significant motion artifacts. 2. Stable right posterior temporoparietal meningioma. There is mass effect to the adjacent brain but no thickened vasogenic edema. 3. Cerebral volume loss and chronic microvascular ischemic changes. Dictated by: Patricia Diallo M.D. on 05/22/2016 at 15:23 . 12-lead ECG EKG: Sinus rhythm, heart rate 92, normal axis, borderline prolonged QTC interval at 456 ms, otherwise normal intervals, normal R-wave progression, no pathological Q waves, minor ST depression in leads II, III, aVF, V4-5. . Additional Diagnostics Electroencephalogram awake/sleep IMPRESSION: This electroencephalogram performed in the awake, drowsy, and asleep states is abnormal. The slow background is suggestive of mild cerebral cortical dysfunction/encephalopathy. This is a nonspecific finding and may be seen in a wide variety of different clinical conditions, including toxic, metabolic, hypoxic, inflammatory, autoimmune, and infectious states. It may also be seen as a medication side effect. Clinical correlation is advised. 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 Patient was admitted for evaluation and treatment seizure like activity. Hospital day 2. 1. Acute seizure , present on admission. 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 Recent Brain MRI revealed mild mass effect. Patient has been evaluated at the [facility] for possible surgical removal. He was recommended to follow up in one year. -Patient is being followed by Dr. Fox and has been evaluated by him on admission -CT brain negative. MRI brain pending -Repeat EEG ordered -Keppra 1000 mg BID daily -Fosphenytoin 100 mgPE IV every 8 hours. Will adjust dose based on treatment response and serum levels -Lorazepam, 1 mg IV every 4 hours as needed -Plan to transfer the patient to a tertiary center with potential for continuous video electroencephalography monitoring was discussed with the patient's . She refused the transfer. -NS IV @ 100 ml/hr -Continue seizure and fall precautions and continuous neuro checks 2. Altered mental status due to postictal state and medications , present on admission. Active -See #1 3. Diabetes mellitus, present on admission. Active -On Metformin and NPH at home. Will hold home medications -Nutritional and low dose correctional sliding scale 4. Hypertension, present on admission. Improved. -Will hold his home blood pressure medications for now 5. Episode of hypoglycemia -glucose reportedly 40 when EMS arrived initially -hold off standing dose of insulin and will use sliding scale for now 6. Dementia, presumed stable Full code Inpatient status Pain Evaluation: Adequate Pain Control GI Prophylaxis: Proton Pump Inhibitor VTE Prophylaxis: Sub-Q Heparin (Unfractionated) Resuscitation Status: CPR: Attempt Resuscitation Attending Statement Attending Statement The patient was seen and examined together with Dr. Kohler on 05/23/2016 and I agree with the history, exam and plan as outlined in the note above. Gloria Kohler DO May 23, 2016 14:19 Santiago Hansen MD May 23, 2016 20:36 Assessment: 1. Acute encephalopathy, present on admission. Active. Impression: The patient presented with several episodes of brief unresponsiveness with witnessed subtle shaking and muscle rigidity. 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 His neurological symptoms and size of his brain mass has been monitored closely by Dr. Fox and he has been referred to neurosurgery at the [facility] for consultation regarding surgical removal for which they recommend conservative monitoring with annual MRI surveillance unless he develops severe headaches or seizures then they recommend repeating the MRI sooner. CT brain without contrast did not reveal any acute intracranial process. Repeat MRI brain with and without contrast appears to be stable with mild mass effect, which appears unchanged when compared to the prior study. There is no vasogenic edema noted. There is no evidence of an acute cerebrovascular lesion such as a stroke and no evidence suggestive of a transient ischemic attack. Given the fact that normal intravascular flow voids are present and that the brainstem appears normal, a cerebrovascular etiology involving the posterior circulation and brainstem is excluded based on this study. The electroencephalogram did not demonstrate any evidence of ongoing ictal activity. The patient was loaded with Keppra but continued to have episodes of unresponsiveness, subtle shaking, with muscle rigidity, therefore, he was given a loading dose of fosphenytoin at the recommendation of Dr. Fox. Fosphenytoin level today is 12.5. His mental status from yesterday is unchanged. His encephalopathy may be secondary to medications or a prolonged post ictal period or some combination thereof. Also recommend attempting to exclude any potential toxic and metabolic etiologies for his change in mental status. Differential diagnosis includes: Mass effect with secondary focal or status epilepticus versus toxic vs metabolic vs infectious encephalopathy. Recommendations: 1. Obtain repeat EEG which has been ordered due to no significant change in his mental status. 2. At this point we would recommend transferring the patient to a tertiary center with potential for continuous video electroencephalography monitoring as the patient may be periodically seizing. 3. Continue fosphenytoin 300 mg IV daily and Keppra 1000 mg twice daily. 4. Continue seizure and fall precautions and continuous neuro checks in the mean time. Thank you for this most interesting consult we will continue to follow along with you. . GI Prophylaxis: Proton Pump Inhibitor VTE Prophylaxis: Sub-Q Heparin (Unfractionated) VTE Mechanical Devices: Intermittant Pneumatic CD Resuscitation Status: CPR: Attempt Resuscitation Gloria Kohler DO May 23, 2016 14:19
[2016-05-23] MEDS ORDERED: Fosphenytoin 50 mgPE/mL 2 mL Inj IV ONE (15:30)
--- NOTE | 2016-05-23 15:50 | NUR ---
Evaluation completed. Please go to "Notes" then click on "Assessments and Notes" (bottom left corner of screen). Then select appropriate discipline tab on top of screen.
--- NOTE | 2016-05-23 17:39 | NUR ---
Mentation/Agitation Patient somnolent this morning with only brief response to verbal stimulation. Patient increasingly alert through out the day. Patient has ataqxia r/t brain CA making it difficult for patient to communicate. Gave patient a pen and paper but he threw it across room. Patient became increasingly agitated throughout shift. Patient was incontinent of stool and began hitting and kicking while we cleaned him up. Patient had to to placed in soft limb restraints for safety of caregivers. is at bedside however patient continues to be agitated. Will continue frequent care checks for patient safety.
[2016-05-23 20:21] VITALS: BP 148/43; PULSE 71; RESP 20; O2SAT 98
--- NOTE | 2016-05-23 23:35 | NUR ---
rash pt with rash in groin, called received order for nystatin powder, applied to groin.
[2016-05-23 23:57] VITALS: BP 138/62; PULSE 65; RESP 23; O2SAT 98
[2016-05-23] MEDS: Nystatin 100,000 Unit/Gm 15 Gm Powder TOPICAL SCH (23:58)
[2016-05-24] VITALS (7 sets, daily range): BP systolic 138–169; BP diastolic 64–95; PULSE 68–80; RESP 16–22; O2SAT 95–99
--- NOTE | 2016-05-24 00:03 | PROG NOTE ---
[address] [address] PROGRESS NOTE PATIENT: GRAEME ESPINAL : 1930 MR#: [id number] ADMIT: 05/22/2016 JOB ID: [id number] DATE: 05/22/2016 SUBJECTIVE: The patient appears slightly more awake today. Still with dysarthric speech and intermittent confusion. Electroencephalogram was performed today. Please see report. OBJECTIVE: Vital signs: Temperature 36.9, pulse 71, blood pressure 148/43, pulse oximetry 98% on room air. He appears more awake today and less drowsy, however, he continues to have dysarthric speech and confusion. He is awake, alert, oriented x1. He was able to show me two fingers in his right hand, however, was not able to follow any further complex commands. Throughout the day he has been intermittently confused, however, was noted to be more awake this evening. Pupils equal, round, reactive to light. Mild ptosis bilaterally. Extraocular movements were smooth and conjugate with no evidence of nystagmus. He was able to track my finger today as opposed to yesterday when I examined him with a doll's eye maneuver. Blink to threat was intact bilaterally. Face appeared symmetrical. Facial sensation could not be assessed, again, secondary to mental status. Tongue was midline. There was no evidence of any tongue bite. Sternocleidomastoid and trapezii could not be assessed due to mental status. Speech did appear dysarthric and confused, however, he does appear more alert than yesterday. He is able to move all four extremities spontaneously. Sensory: He does withdraw to noxious stimuli symmetrically. Deep tendon reflexes were symmetrical bilaterally. Plantars were equivocal bilaterally. Gait was deferred. I asked him how he felt and he said that he feels "great." He was still unable to follow complex commands, however, he was able to show me two fingers in his right hand. 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 Please see MRI report which did not demonstrate any evidence of vasogenic edema. RECOMMENDATIONS: 1. Recommend 400mg of Dilantin today. 2. If symptoms do not improve, discussed with his Decadron 4 mg IV. Side effects may include increase in blood sugars and agitation. Would also potentially benefit from neurosurgical input. Given that he does have episodes of intermittent agitation and confusion, cannot exclude nonconvulsive status epilepticus. He is presently on Dilantin, which is therapeutic, and Keppra. We did discuss transfer to [facility] for video electroencephalography monitoring to exclude the possibility of nonconvulsive status epilepticus. Will continue to monitor with spot EEGs here. I do believe that he would benefit from continuous video electroencephalography monitoring. An extensive evaluation has been performed so far and has not found any other potential etiology for his change in mental status. His symptoms may be secondary to postictal state, as well as combination of sedative medications such as lorazepam, however, I cannot exclude the possibility of nonconvulsive status epilepticus as a potential etiology, and continuing to monitor with spot electroencephalograms. He has not had a generalized tonic-clonic seizure that has been witnessed by his or nursing staff here. 3. Continue seizure and fall precautions. 4. Will continue to follow. 5. Thank you, again, Dr. Trujillo, for allowing me to participate in the care of this delightful patient. I do follow him closely in the clinic. Please also see my note Dr. Kritsal Jones. The patient was discussed with the resident and I examined the patient myself and agree with the resident's note. In the event that he does become agitated I do recommend low-dose haloperidol p.r.n. as needed or Seroquel as opposed to lorazepam due to the potential for sedation. I do recommend IV lorazepam p.r.n. for seizure. Continue seizure and fall precautions. Please feel free to contact me with any questions or concerns. MANJIT
[2016-05-24] MEDS ORDERED: Haloperidol 5 mg/mL Inj IVPUSH ONE ×2 (03:50)
--- NOTE | 2016-05-24 05:40 | NUR ---
mentation/agitation pt becoming very agitated, kicking and hitting staff, pt with restraints in place but still able to grab hold. tried orientated pt, pt with mumbled speech unable to form words at times, this is baseline. pt not allowing staff to get VS, or lab to get blood, neurologist was here last night and said if pts gets agitated and its not a seizure to call hospitalists and get Haldol not to use ativan unless its seizure. 2.5mg IV haldol given, pt relaxing a little, tried repositioning and toileting, pt denies pain, IVF running, BG 98. tele SR 70-90s. will cont POC and close monitoring
[2016-05-24] MEDS: Insulin LISPRO 300 Unit/3 mL Inj SUBQ SCH ×4 (08:00→21:43)
[2016-05-24 08:02] LABS: BASOPHILS % (AUTO) 0.3 % (0-3); EOSINOPHILS % (AUTO) 4.8 % (0-5); MONOCYTES % (AUTO) 6.9 % (4-12); Mean Corpuscular Hemoglobin 32.3 pg (27.0-35.0); Mean Corpuscular Volume 95.3 fL (81-100); NEUTROPHILS % (AUTO) 66.6 % (40-74); Platelet Count 214 bil/L (150-400)
[2016-05-24] MEDS: Heparin 5,000 Unit/mL Inj SUBQ SCH ×2 (08:32→20:59)
[2016-05-24] MEDS: Pantoprazole 4 mg/mL 10 mL Inj IVPUSH SCH (08:32)
[2016-05-24] MEDS: levETIRAcetam Inj 1,000 MG in IV Premix 1 EACH IV SCH ×2 (08:33→20:56)
[2016-05-24] MEDS: Nystatin 100,000 Unit/Gm 15 Gm Powder TOPICAL SCH ×2 (08:34→20:59)
--- NOTE | 2016-05-24 08:45 | PROCED ---
[address] [address] EEG PATIENT: GRAEME ESPINAL : 1930 MR#: [id number] ADMIT: 05/22/2016 JOB ID: [id number] HISTORY: Patient is an 85-year-old man with a history of seizures. TECHNICAL DESCRIPTION: This digital EEG was recorded using 25 scalp and ear and 2 EKG electrodes. It was reviewed in bipolar and referential montages following reformatting in 10-20 [employer] Electrode Placement System. During the recording, the patient was noted to be awake, drowsy, and asleep. The background was composed of a polymorphic mixture of delta and theta, principally theta rhythms approximately 6-7 hertz, 10-20 microvolt symmetrical and reactive. Posterior dominant rhythm attenuated with eye opening. The rest of the background was composed of low voltage faster frequencies. There was abundant frontally predominant beta that appeared symmetrically intermittently throughout this recording. The study was also limited by motion and movement artifact. There were no focal, lateralized, or epileptiform discharges noted. There were no seizures seen. Hyperventilation could not be performed. Photic stimulation from 1-30 hertz could not be performed. Sleep was characterized by the attenuation of the alpha rhythm and the appearance of symmetrical vertex waves, heralding stage 1 of sleep. This is followed by the development of symmetrical sleep spindles heralding stage 2 of sleep. There was a brief epic lasting 7-10 seconds of rhythmic movements that were noted bilaterally in both hemispheres likely secondary to myogenic and motion artifact. The EKG rhythm strip revealed a heart rate of 60 to 80 beats per minute with no apparent arrhythmias. IMPRESSION: This electroencephalography performed in the awake, drowsy, and asleep states is abnormal. The slow background is suggestive of mild cerebral cortical dysfunction/encephalopathy. This is a nonspecific finding. It may be seen in a wide variety of different clinical conditions, including toxic, metabolic, hypoxic, inflammatory, autoimmune, and infectious states. Clinical correlation is advised.
[2016-05-24] MEDS: Fosphenytoin Inj 100 mgPE in 0.9% Sodium Chloride 50 ML IV SCH ×3 (12:12→21:43)
[2016-05-24] MEDS: Dextrose 5% 0.9% NaCl 1,000 ML IV SCH (12:12)
--- NOTE | 2016-05-24 13:33 | NUR ---
NUTRITION ASSESSMENT: ASSESS: Pt is an 85yo M admitted for new onset of seizures. Neurology is following. Pt has history of dementia and continues to experience AMS. ST has evaluated pt and placed him on a stimulation diet which he is tolerating bites of. 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 Glu 126, Alk phos 175, alb 3.9 MEDS: Reviewed. GI: BM x1 05/23 SKIN: Sonny 14, no major issues noted. CURRENT WTS: 88.1kg, BMI 27.9kg/m2, admit wt 91kg (stated) DIET: stimulation, bites EST. NEEDS: Kcals: 1940-2205kcal/day (22-25kcal/kg) Pro: 90-105g/day (1.0-1.2g/kg) NUTRITION DIAGNOSIS: 1.) Chew/swallow difficulties related to AMS as evidence by need for stimulation diet per ST. 2.) Inadequate oral intake related to AMS as evidence by pt currently on stimulation diet NUTRITION INTERVENTION: 1.) Advance diet per ST. 2.) Once diet is advanced past stimulation, will evaluate need for supplements. 3.) If pt is unable to advance diet past stimulation, he will not be able to meet his nutritional needs through PO intake. MONITOR / EVAL: PO, ST, gi, labs, wt, POC, nutrition status. Will continue to monitor per high nutrition risk guidelines.
--- NOTE | 2016-05-24 14:52 | NUR ---
Social Work Note - Initial Assessment: D/A: See Initial Assessment, the Pt is an 85 y/o male that was admitted for new onset seizure. Readmission Risk Score 6. The Pt's PCP is MD Suhas Fisher and his insurance is [employer], no LTC or VA benefits reported. EMR reviewed, JERALD met with the Pt's family in the waiting area while the Pt was having an EEG to explain role and discuss discharge planning. JERALD telephone number given to . The Pt does not have an Advanced Directive, paperwork given. The Pt lives with his in a one story home in [place]. His assists with transportation, he has a cane and a walker, and he has no history of HH/SNF services. The Pt is currently on bedrest. Neurology involved, see notes. The Pt's family deny any needs at this time. JERALD will continue to follow. P: The Pt is not medically stable for discharge and is currently on bedrest. Neurology involved, see note. SW will continue to follow. RAZ Marr Damper Fitter Addendum: 05/24/16 at 1457 by CHRISTI BLACKMON SS Amended: Links added.
--- NOTE | 2016-05-24 15:41 | PCM.PNMED ---
Subjective Date of Service May 24, 2016 Subjective Neurology Progress Note: Attending Dr. Fox Overnight: There was no seizure activity noted. The patient received Haldol 2.5 mg IV once for agitation. The patient is lying in bed sleeping with fall precautions in place. He has a sitter present. The patient is mildly arousable. He is severely dysarthric but occasionally comprehendible. The patient minimally follow commands. He is more awake and less agitated than yesterday evening. . Exam Vital Signs Vital Sign - Last Date Time Temp Pulse Resp B/P Pulse Ox O2 Delivery O2 Flow Rate FiO2 05/24/16 12:47 37.1 70 20 163/74 99 Room Air 05/22/16 23:26 2.00 Intake and Output 05/23/16 05/23/16 05/24/16 Cumulative From/Thru 14:59 22:59 06:59 05/22/16 05:11 - 05/24/16 06:18 Intake Total 749 ml 0 ml 2154 ml 2903 ml Output Total 200 ml 200 ml Balance 749 ml 0 ml 1954 ml 2703 ml Intake Oral 0 ml 120 ml 120 ml IV Total 749 ml 2034 ml 2783 ml Output Urine Total 200 ml 200 ml # Voids 3 3 9 # Bowel Movements 1 1 Exam General: Elderly gentleman lying in bed and in no acute distress, well-developed , well-nourished, somnolent, mild apnea. HEENT: Normocephalic, atraumatic. External ears without defect. Pupils small 2mm , equal, round, and reactive to light. Anicteric sclerae, moist conjunctivae, and no lid lag. Mucus membranes severely dry. Neck: Poor skin turgor. No jugular venous distension. No bruits. No lymphadenopathy or thyromegaly. Cardiovascular: Regular rate and rhythm without murmurs, rubs, or gallops appreciated. Pulmonary: Clear to auscultation bilaterally in anterior lung gresham, no crackles, wheezes, or rhonchi. Normal respiratory effort with no use of accessory muscles. Mild apnea. Abdomen: Soft, nontender, nondistended, bowel sounds present. Suprapubic tenderness. No hepatosplenomegaly or masses appreciated. Extremities: No clubbing, cyanosis, or edema. Skin: Normal temperature, turgor, and texture; no rash, ulcers, or subcutaneous nodules appreciated. Neurological: The patient is somnolent but arousable. He is mildly confused while awake. He follow commands minimally. He has severe dysarthria but is occasionally comprehendible at times. DTR's intact. Full neurologic exam is unobtainable as patient is unable to participate due to somnolence and lethargy. . IVs and Medications Medications Reviewed: Medications were reviewed in detail Lab and Diagnostics Item Value Date Time Phenytoin (Dilantin) Level 10.7 uG/mL 05/24/16749 Item Value Date Time Lactic Acid Level 0.6 mmol/L 05/24/16749 Calcium Level 9.2 mg/dL 05/24/16749 Total Bilirubin 0.4 mg/dL 05/24/16749 Aspartate Amino Transf (AST/SGOT) 21 U/L 05/24/16749 Alanine Aminotransferase (ALT/SGPT) 14 U/L 05/24/16749 Alkaline Phosphatase 175 U/L H 05/24/16749 Ammonia 45 ug/dL 05/24/16749 Total Protein 6.9 g/dL 05/24/16749 Albumin 3.9 g/dL 05/24/16749 Result Diagram: 05/24/1674905/24/16749 X-Rays, CTs and MRIs CT BRAIN (TPA) IMPRESSION: 1. No acute intracranial process. 2. Moderate atrophy and chronic microvascular ischemic changes. This study fulfills neurological imaging criteria for inclusion or exclusion of acute stroke therapies based on available published neurological guidelines. Dictated by: Chante Rodriguez M.D. on 05/22/2016 at 8:29 Approved by: Chante Rodriguez M.D. on 05/22/2016 at 8:30 MRI SEIZURE BRAIN WITH AND WITHOUT CONTRAST IMPRESSION: 1. Limited examination due to significant motion artifacts. 2. Stable right posterior temporoparietal meningioma. There is mass effect to the adjacent brain but no thickened vasogenic edema. 3. Cerebral volume loss and chronic microvascular ischemic changes. Dictated by: Patricia Diallo M.D. on 05/22/2016 at 15:23 . 12-lead ECG EKG: Sinus rhythm, heart rate 92, normal axis, borderline prolonged QTC interval at 456 ms, otherwise normal intervals, normal R-wave progression, no pathological Q waves, minor ST depression in leads II, III, aVF, V4-5. . Additional Diagnostics Electroencephalogram awake/sleep IMPRESSION: This electroencephalogram performed in the awake, drowsy, and asleep states is abnormal. The slow background is suggestive of mild cerebral cortical dysfunction/encephalopathy. This is a nonspecific finding and may be seen in a wide variety of different clinical conditions, including toxic, metabolic, hypoxic, inflammatory, autoimmune, and infectious states. It may also be seen as a medication side effect. Clinical correlation is advised. Abraham Fox MD 05/22/16 1841 Electroencephalogram awake/sleep IMPRESSION: This electroencephalography performed in the awake, drowsy, and asleep states is abnormal. The slow background is suggestive of mild cerebral cortical dysfunction/encephalopathy. This is a nonspecific finding. It may be seen in a wide variety of different clinical conditions, including toxic, metabolic, hypoxic, inflammatory, autoimmune, and infectious states. Clinical correlation is advised. Abraham Fox MD 05/24/16 0823 . Assessment & Plan Suhas Herrera is an 85-year-old male with past medical history significant for right extra-axial temporoparietal lobe mass thought to represent a meningioma, secondary cognitive impairment with ataxia, hypertension, hyperlipidemia, diabetes mellitus type II, insulin using, with diabetic retinopathy who presented to [facility] Emergency Department via EMS due to multiple brief episodes of altered mental status. Assessment: 1. Acute encephalopathy, present on admission. Active. 2. Acute delirium, not present on admission. Active. Impression: The patient presented with several episodes of brief unresponsiveness with witnessed subtle shaking and muscle rigidity. The patient has a history of a right extra-axial temporoparietal lobe mass thought to be field representative of a meningioma with recent brain MRI on 05/10/2016 showing mild mass effect. His neurological symptoms and size of his brain mass has been monitored closely by Dr. Fox and he has been referred to neurosurgery at the [facility] for consultation regarding surgical removal for which they recommend conservative monitoring with annual MRI surveillance unless he develops severe headaches or seizures then they recommended repeating the MRI sooner. CT brain without contrast did not reveal any acute intracranial process. Repeat MRI brain with and without contrast appears to be stable with mild mass effect, which appears unchanged when compared to the prior study. There is no vasogenic edema noted. There is no evidence of an acute cerebrovascular lesion such as a stroke and no evidence suggestive of a transient ischemic attack. Given the fact that normal intravascular flow voids are present and that the brainstem appears normal, a cerebrovascular etiology involving the posterior circulation and brainstem is excluded based on this study. The electroencephalogram did not demonstrate any evidence of ongoing ictal activity. The patient was loaded with Keppra but continued to have episodes of unresponsiveness, subtle shaking, with muscle rigidity, therefore, he was given a loading dose of fosphenytoin at the recommendation of Dr. Fox.He is currently on Keppra 1000 mg twice daily and Fosphenytoin 300 mg daily. His Fosphenytoin level was initially low therapeutic at 12.5 and he was given an extra 100 mg with a repeat level today at 10.7, therefore, his Fosphenytoin was increased to 400 mg daily today. His repeat EEG was abnormal but non-specific and did not show any epileptiform foci. His mental status from yesterday improved slightly in that his somnolence was improved, however, his dysarthria persists and he is now agitated and delirious. An extensive evaluation has been performed so far and has not found any other potential etiology for his change in mental status other than potential non-convulsive status epilepticus. Differential for his encephalopathy includes medications or a prolonged post ictal period or some combination thereof versus non-convulsive status epilepticus versus possible early acute CVA not yet radiographically evident. Also recommend attempting to exclude any potential toxic and metabolic etiologies for his change in mental status. Recommendations: 1. Increase fosphenytoin from 300 mg to 400 mg IV daily and continue Keppra 1000 mg twice daily. Will order repeat phenytoin level for tomorrow morning if patient is not transferred out. 2. Highly recommend transferring the patient to a tertiary center with potential for continuous video electroencephalography monitoring to exclude the possibility of nonconvulsive status epilepticus and for neurosurgery evaluation. 3. Spot EEG for any seizure like activity or significant change in his mental status. Today's EEG is pending. 4. Continue seizure and fall precautions with continuous neuro checks in the mean time. Only give lorazepam IV PRN for seizure. 5. Recommend low-dose haloperidol or Seroquel PRN for agitation and ONLY if agitated, as opposed to lorazepam due to the potential for sedation. 6. Will stop omeprazole as this meets Beers Criteria and rarely causes confusion and switch to famotidine 20 mg twice daily. 6. Will order a repeat MRI with and without contrast tomorrow morning if the patient is unable to transfer out due to continued impaired cognition and severe dysarthria. Thank you for this most interesting consult we will continue to follow along with you. . VTE Mechanical Devices: Intermittant Pneumatic CD Time spent Seen and examined with resident. Agree with above. Attending Statement Seen and examined with resident. Agree with above. Kristal Jones DO May 24, 2016 14:08 Abraham Fox MD June 26, 2016 00:56
--- NOTE | 2016-05-24 17:16 | NUR ---
Mentation/BP No reports of chest pain/pressure/discomfort. Tele SR 70s, occasional PVCs. BP 160s this AM and afternoon. No reports of SOB, SPO2 on RA 99%. Patient in no apparent signs of respiratory distress.No reports of n/v, patient appetite decreased per , patient states he is not hungry. Incontinent of stool, mostly incontinent of urine but has occasional episodes of clarity to use urinal. Patient reporting suprapubic pain with light palpation, placed Roca per MD orders -- voiding dark yellow urine to gravity. Patient more alert this AM, oriented to self but does not know location or year. Has moments of clear speech and clarity, speech is mostly mumbled with some stuttering episodes, patient will then drowse off mid conversation.
--- NOTE | 2016-05-24 18:22 | PCM.PNMED ---
Subjective Date of Service May 24, 2016 Subjective No reports of chest pain/pressure/discomfort. Tele SR 70s, occasional PVCs. BP 160s this AM and afternoon. No apparent signs of respiratory distress. Incontinent of stool and urine, stock catheter placed. Patient more alert today but his speech continues to be mostly mumbled. Exam Vital Signs Vital Sign - Last Date Time Temp Pulse Resp B/P Pulse Ox O2 Delivery O2 Flow Rate FiO2 05/24/16 12:47 37.1 70 20 163/74 99 Room Air 05/22/16 23:26 2.00 Intake and Output 05/23/16 05/23/16 05/24/16 Cumulative From/Thru 15:00 23:00 07:00 05/22/16 05:11 - 05/24/16 06:18 Intake Total 749 ml 0 ml 2154 ml 2903 ml Output Total 200 ml 200 ml Balance 749 ml 0 ml 1954 ml 2703 ml Intake Oral 0 ml 120 ml 120 ml IV Total 749 ml 2034 ml 2783 ml Output Urine Total 200 ml 200 ml # Voids 3 3 9 # Bowel Movements 1 1 Exam General: Elderly gentleman lying in bed and in no acute distress, well-developed , well-nourished, somnolent, mild apnea. HEENT: Normocephalic, atraumatic. External ears without defect. Pupils small 2mm , equal, round, and reactive to light. Anicteric sclerae, moist conjunctivae, and no lid lag. Mucus membranes severely dry. Neck: Poor skin turgor. No jugular venous distension. No bruits. No lymphadenopathy or thyromegaly. Cardiovascular: Regular rate and rhythm without murmurs, rubs, or gallops appreciated. Pulmonary: Clear to auscultation bilaterally in anterior lung gresham, no crackles, wheezes, or rhonchi. Normal respiratory effort with no use of accessory muscles. Mild apnea. Abdomen: Soft, nontender, nondistended, bowel sounds present. Suprapubic tenderness. No hepatosplenomegaly or masses appreciated. Extremities: No clubbing, cyanosis, or edema. Skin: Normal temperature, turgor, and texture; no rash, ulcers, or subcutaneous nodules appreciated. Neurological: The patient is somnolent but arousable. He is mildly confused while awake. He follow commands minimally. He has severe dysarthria but is occasionally comprehendible at times. DTR's intact. Full neurologic exam is unobtainable as patient is unable to participate due to somnolence and lethargy. . IVs and Medications Medications Reviewed: Medications were reviewed in detail Lab and Diagnostics Result Diagram: 05/24/16 0750 05/24/16 0750 X-Rays, CTs and MRIs CT BRAIN (TPA) IMPRESSION: 1. No acute intracranial process. 2. Moderate atrophy and chronic microvascular ischemic changes. This study fulfills neurological imaging criteria for inclusion or exclusion of acute stroke therapies based on available published neurological guidelines. Dictated by: Chante Rodriguez M.D. on 05/22/2016 at 8:29 Approved by: Chante Rodriguez M.D. on 05/22/2016 at 8:30 MRI SEIZURE BRAIN WITH AND WITHOUT CONTRAST IMPRESSION: 1. Limited examination due to significant motion artifacts. 2. Stable right posterior temporoparietal meningioma. There is mass effect to the adjacent brain but no thickened vasogenic edema. 3. Cerebral volume loss and chronic microvascular ischemic changes. Dictated by: Patricia Diallo M.D. on 05/22/2016 at 15:23 . 12-lead ECG EKG: Sinus rhythm, heart rate 92, normal axis, borderline prolonged QTC interval at 456 ms, otherwise normal intervals, normal R-wave progression, no pathological Q waves, minor ST depression in leads II, III, aVF, V4-5. . Additional Diagnostics Electroencephalogram awake/sleep IMPRESSION: This electroencephalogram performed in the awake, drowsy, and asleep states is abnormal. The slow background is suggestive of mild cerebral cortical dysfunction/encephalopathy. This is a nonspecific finding and may be seen in a wide variety of different clinical conditions, including toxic, metabolic, hypoxic, inflammatory, autoimmune, and infectious states. It may also be seen as a medication side effect. Clinical correlation is advised. Abraham Fox MD 05/22/16 0001 Electroencephalogram awake/sleep IMPRESSION: This electroencephalography performed in the awake, drowsy, and asleep states is abnormal. The slow background is suggestive of mild cerebral cortical dysfunction/encephalopathy. This is a nonspecific finding. It may be seen in a wide variety of different clinical conditions, including toxic, metabolic, hypoxic, inflammatory, autoimmune, and infectious states. Clinical correlation is advised. Abraham Fox MD 05/24/16 0254 . Assessment & Plan Suhas Herrera is an 85 year old male with a history of an extra-axial mass in the right temporoparietal lobe, dementia, hypertension and diabetes mellitus who presented to [facility] Emergency Department via EMS due to multiple brief episodes of altered mental status. Patient was admitted for evaluation and treatment seizure like activity. Hospital day 3. 1. Acute seizure , present on admission. 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 Recent Brain MRI revealed mild mass effect. Patient has been evaluated at the [facility] for possible surgical removal. He was recommended to follow up in one year. -Patient is being followed by Dr. Fox and has been evaluated by him on admission -CT brain negative. MRI brain pending -Repeat EEG ordered -Keppra 1000 mg BID daily -Fosphenytoin 100 mgPE IV every 8 hours. Will adjust dose based on treatment response and serum levels -Lorazepam, 1 mg IV every 4 hours as needed. Haldol for aggressive behavior. -Plan to transfer the patient to a tertiary center with potential for continuous video electroencephalography monitoring was discussed with the patient's . She refused the transfer. -NS IV @ 100 ml/hr -Continue seizure and fall precautions and continuous neuro checks -Transfer patient to or [facility] tomorrow for management of AEDs under VEEG monitoring and possible neurosurgical evaluation 2. Altered mental status due to postictal state and medications, present on admission. Active -See #1 3. Diabetes mellitus, present on admission. Active -On Metformin and NPH at home. Will hold home medications -Nutritional and low dose correctional sliding scale 4. Hypertension, present on admission. Improved. -Will hold his home blood pressure medications for now 5. Episode of hypoglycemia -glucose reportedly 40 when EMS arrived initially -hold off standing dose of insulin and will use sliding scale for now 6. Dementia, presumed stable Pain Evaluation: Adequate Pain Control GI Prophylaxis: Proton Pump Inhibitor VTE Prophylaxis: Sub-Q Heparin (Unfractionated) Resuscitation Status: CPR: Attempt Resuscitation VTE Mechanical Devices: Intermittant Pneumatic CD Attending Statement The patient was seen and examined independently on 05/24/2016 and case discussed with Dr. Kohler . I agree with the history, exam and plan as outlined in the note above. Gloria Kohler DO May 24, 2016 18:22 Santiago Hansen MD May 25, 2016 06:32
[2016-05-24] MEDS: Famotidine Inj 20 MG in IV Premix 1 EACH IV SCH (21:15)
[2016-05-25 03:35] VITALS: BP 139/68; PULSE 69; RESP 20; O2SAT 94
[2016-05-25 04:29] LABS: Mean Corpuscular Hemoglobin 32.5 pg (27.0-35.0); Mean Corpuscular Volume 96.5 fL (81-100)
[2016-05-25 05:28] VITALS: PULSE 70
[2016-05-25] MEDS: Dextrose 5% 0.9% NaCl 1,000 ML IV SCH (05:56)
[2016-05-25] MEDS: Fosphenytoin Inj 100 mgPE in 0.9% Sodium Chloride 50 ML IV SCH ×2 (05:56→13:00)
--- NOTE | 2016-05-25 06:16 | NUR ---
mentation pt out of restraints, sitter in room, pt a little restless as the night goes on, hasn't gotten much sleep since about midnight, pts speech clearer this evening, pt doesn't appear agitated or anxious, no seizure activity noted, pt moves in bed and helps turn some. pt stating multiply times this shift he wants to go home. offered pt ice chips and ice cream pt declined all. tele SR PVCs,
[2016-05-25 07:40] VITALS: BP 148/70; PULSE 63; RESP 20; O2SAT 94
[2016-05-25 08:00] VITALS: PULSE 71
[2016-05-25] MEDS: Insulin LISPRO 300 Unit/3 mL Inj SUBQ SCH ×2 (08:00→13:00)
--- NOTE | 2016-05-25 08:44 | CONS ---
[address] [address] CONSULTATION REPORT PATIENT: GRAEME ESPINAL : 1930 MR#: [id number] ADMIT: 05/22/2016 JOB ID: [id number] DATE OF SERVICE: 05/24/2016 SUBJECTIVE: The patient did appear to be more alert and awake. No observed seizures noted. Still dysarthric and confused, however family members do report that he does appear more alert and awake. Reviewed EEG results. PHYSICAL EXAMINATION: Temperature 37.0, pulse 68, respiratory rate of 20, blood pressure 153/69, pulse oximetry 98% on room air. General, he appears more alert and awake today. Continues to have dysarthric speech and a mild to moderate degree of confusion. He is awake, alert, and oriented x2. He was able to show me 2 fingers in his right hand. He did know his name and the age and the year. He also knew his date. His was at the bedside as well as one of his daughters. Cranial nerves: Pupils equal, round, reactive to light. Mild degree of ptosis bilaterally. Extraocular movements were smooth. The conjugate with no evidence of nystagmus. Visual gresham were full to confrontation. Face appeared symmetrical. Facial sensation intact to light touch. Tongue was midline. He did reported dry mouth. However this was not observed on examination. Sternocleidomastoids and trapezii are 5/5 bilaterally. Speech continues to be dysarthric. No aphasia. Moving all 4 extremities spontaneously. Sensory withdraws to noxious stimuli symmetrically. He also reported that sensation was intact to light touch and temperature. Deep tendon reflexes symmetrical bilaterally. Plantars equivocal bilaterally. Gait was deferred. 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 RECOMMENDATIONS: Given Dilantin levels recommend increasing Dilantin 400 mg daily. Repeat the Dilantin level tomorrow morning. I also recommend a repeat magnetic resonance imaging study of his brain with and without contrast tomorrow to assess for any change in the degree of mass effect of the lesion and to look for any evidence of vasogenic edema and to exclude the possibility of any other etiology for his continued dysarthric speech, although his mental status has been improving. He is receiving p.r.n. haloperidol, however as per the MAR has not receive lorazepam. I would also recommend continued spot EEGs daily and if there is any evidence of seizure to be contacted and lorazepam IV push p.r.n. seizure. Continue seizure and fall precautions. We will continue to follow. The patient is also being seen daily by Dr. Kristal Jones. I discussed his care and examined the patient myself with her. Will continue to follow. Please feel free to contact me with any questions or concerns.
[2016-05-25] MEDS: Famotidine Inj 20 MG in IV Premix 1 EACH IV SCH (09:28)
[2016-05-25] MEDS: Nystatin 100,000 Unit/Gm 15 Gm Powder TOPICAL SCH (09:28)
[2016-05-25] MEDS: levETIRAcetam Inj 1,000 MG in IV Premix 1 EACH IV SCH (09:29)
[2016-05-25] MEDS: Heparin 5,000 Unit/mL Inj SUBQ SCH (09:29)
[2016-05-25] MEDS ORDERED: Fosphenytoin Inj 500 mgPE in 0.9% Sodium Chloride 50 ML IV ONE (11:50)
--- NOTE | 2016-05-25 11:59 | PCM.DIMED ---
Discharge Instructions Date of Service May 25, 2016 Dates of Hospitalization May 22, 2016 at 09:35 Discharge Diagnosis Discharge Diagnosis 1. Acute seizure, present on admission. Active 2. Altered mental status due to postictal state and medications, present on admission. Improving 3. Diabetes mellitus, present on admission. Active 4. Hypertension, present on admission. Stable 5. Episode of hypoglycemia, resolved 6. Dementia, presumed stable Activity Limited until seen by PCP Call your provider Fever or Chills, Shortness of breath, Bleeding, Chest pain, Vomitting, Excessive diarrhea, Weakness (unilateral) Patient Instructions Follow-up Provider: Suhas Fisher MD Follow-up with PCP in: Other (Upon discharge from ) Gloria Kohler DO May 25, 2016 11:59
--- NOTE | 2016-05-25 12:02 | PCM.DC.MED ---
Discharge Summary Date of Service May 25, 2016 Dates of Hospitalization Date of Hospital Admission May 22, 2016 at 09:35 Date of Discharge: May 25, 2016 Providers: Admitting Physician: Earnest Ybarra Primary Care Physician: Suhas Fisher MD Attending Physician: Earnest Ybarra Diagnosis at Time of Discharge Diagnosis at Time of Discharge 1. Acute seizure, present on admission. Active 2. Altered mental status due to postictal state and medications, present on admission. Improving 3. Type 2 diabetes mellitus, present on admission. Active 4. Hypertension, present on admission. Improved. 5. Episode of hypoglycemia, resolved. 6. Dementia, presumed stable Consultations Dr. Abraham Patel of Neurology Procedures XRay, CTs & MRIs CT BRAIN (TPA) IMPRESSION: 1. No acute intracranial process. 2. Moderate atrophy and chronic microvascular ischemic changes. This study fulfills neurological imaging criteria for inclusion or exclusion of acute stroke therapies based on available published neurological guidelines. Dictated by: Chante Rodriguez M.D. on 05/22/2016 at 8:29 Approved by: Chante Rodriguez M.D. on 05/22/2016 at 8:30 MRI SEIZURE BRAIN WITH AND WITHOUT CONTRAST IMPRESSION: 1. Limited examination due to significant motion artifacts. 2. Stable right posterior temporoparietal meningioma. There is mass effect to the adjacent brain but no thickened vasogenic edema. 3. Cerebral volume loss and chronic microvascular ischemic changes. Dictated by: Patricia Diallo M.D. on 05/22/2016 at 15:23 . ECG 12 Lead EKG: Sinus rhythm, heart rate 92, normal axis, borderline prolonged QTC interval at 456 ms, otherwise normal intervals, normal R-wave progression, no pathological Q waves, minor ST depression in leads II, III, aVF, V4-5. . Other Diagnostics Electroencephalogram awake/sleep IMPRESSION: This electroencephalogram performed in the awake, drowsy, and asleep states is abnormal. The slow background is suggestive of mild cerebral cortical dysfunction/encephalopathy. This is a nonspecific finding and may be seen in a wide variety of different clinical conditions, including toxic, metabolic, hypoxic, inflammatory, autoimmune, and infectious states. It may also be seen as a medication side effect. Clinical correlation is advised. Abraham Patel MD 05/22/16 1562 Electroencephalogram awake/sleep IMPRESSION: This electroencephalography performed in the awake, drowsy, and asleep states is abnormal. The slow background is suggestive of mild cerebral cortical dysfunction/encephalopathy. This is a nonspecific finding. It may be seen in a wide variety of different clinical conditions, including toxic, metabolic, hypoxic, inflammatory, autoimmune, and infectious states. Clinical correlation is advised. Abraham Patel MD 05/24/16 0823 . Brief History Per admit note by Dr. Wil Frias dated 05/22/2016: Suhas Herrera is an 85-year-old male with past medical history significant for right extra-axial temporoparietal lobe mass thought to represent a meningioma, secondary cognitive impairment with ataxia, hypertension, hyperlipidemia, diabetes mellitus type II, insulin using, with diabetic retinopathy who presented to [facility] via EMS due to multiple brief episodes of altered mental status. History of present illness was obtained from the patient's due to patient's somnolence at the time of examination. She reports that around 3 AM she awoke due to her coughing and gurgling and shaking. She tried to wake him up but was unsuccessful so she called EMS. Upon EMS arrival, the patient was found to be hypoglycemic with a blood glucose of 40. He was given glucose and IV fluids. Later that night, the patient went to the bathroom and his found him being very confused holding onto the toilet staring blankly. At that time he had another episode of shaking muscle rigidity that scared her a lot so she called EMS once again. Patient was brought to the Emergency Department where he continued to have a few more episodes of nonresponsiveness and shaking. Patient does not have prior history of seizures. A few weeks prior to this admission he had an unwitnessed fall after which he began to complain of back pain which was relatively well controlled with Tylenol at home. His appetite was decreased as well and he was complaining of just not feeling well. Otherwise she denies chills, fever, headaches, vision changes, chest pain, shortness of breath, nausea, vomiting, diarrhea, difficulties urinating or other symptoms in her . In the Emergency Department, his vital signs were: temperature 36.1, pulse 82 , respiratory rate 21, blood pressure 160/40. Pulse ox 90% on room air. He was given lorazepam 2 mg IV total, loading dose of Keppra 1000 mg IV 1, and fosphenytoin 1500 mgpe IV total. He had CT brain which was negative for acute intracranial process. EKG revealed sinus rhythm, heart rate 92. PCP is Dr. Suhas Fisher. Neurologist is Dr. patel. Hospital Course Patient is an 85-year-old male with an extra-axial mass in the right temporoparietal lobe, dementia, hypertension and diabetes mellitus who presented to [facility] via EMS due to multiple brief episodes of altered mental status. Patient was admitted for evaluation and treatment of seizure-like activity. He had two witnessed episodes of seizure-like activity in the Emergency Department described as focal motor seizures lasting one-to- two minutes. Patient received lorazepam (2mg IV total) and loading doses of Keppra (1000 mg) and fosphenytoin (1500 mgpe) while in the Emergency Department and was maintained with fosphenytoin 100mgpe three times daily. CT and MRI were obtained. His CT of the head demonstrated no acute intracranial process. MRI showed stable right posterior temporoparietal meningioma with mild mass effect. Spot EEGs were suggestive of mild cerebral cortical dysfunction/encephalopathy. 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 Rudy's family also expresses interest in transfer. Fosphenytoin dose was increased to 100mgpe QID based on phenytoin level of 10.7. 1. Acute seizure, present on admission. Active -New onset -Multiple witnessed seizure-like episodes prior to admission, in the Emergency Room and on the floor -Patient was given lorazepam 2 mg IV total, loading dose of Keppra 1000 mg IV 1 , and fosphenytoin 1500 mgpe IV total in the Emergency Department -Patient with right extra-axial temporoparietal lobe mass thought to represent a meningioma. Recent Brain MRI revealed mild mass effect. Patient has been evaluated at the [facility] for possible surgical removal with decision to follow up in one year -CT brain negative per above. MRI brain shows stable right posterior temporoparietal meningioma with mass effect to the adjacent brain but no thickened vasogenic edema -Spot EEGs were performed with evidence of slow background suggestive of mild cerebral cortical dysfunction/encephalopathy. -Keppra 1000 mg BID -Fosphenytoin initially 100 mgPE IV every 8 hours and was increased to 400mgPE daily based on phenytoin level of 10.7uG/mL -Phenytoin level 8.7uG/mL on 05/25/2016. Subsequent one time dose of fosphenytoin 500mgpe given -Haldol PRN agitation -Seizure and fall precautions with continuous neuro checks 2. Altered mental status due to postictal state and medications, present on admission. Improving -See #1 above -Improving but continues to be dysarthric 3. Diabetes mellitus, present on admission. Active -Holding home metformin and insulin NPH -Patient was continued on low dose correctional insulin 4. Hypertension, present on admission. Improved. -Home antihypertensives were held as patient's blood pressure has been controlled 5. Episode of hypoglycemia, present on admission. Resolved -Glucose reportedly 40 with another drop in his blood glucose following admission -Patient was started on D5NS at 75ml/hr 6. Dementia, presumed stable Exam Vital Signs (Last) Date Time Temp Pulse Resp B/P Pulse Ox O2 Delivery O2 Flow Rate FiO2 05/25/16 08:00 71 05/25/16 07:40 36.5 20 148/70 94 Room Air 05/22/16 23:26 2.00 Exam General: Elderly gentleman in bed, No acute distress, well-developed, well- nourished HEENT: Normocephalic, atraumatic. External ears without defect. Anicteric sclerae, moist conjunctivae, and no lid lag. Mucus membranes severely dry. Neck: Poor skin turgor. No jugular venous distension. No bruits. No lymphadenopathy or thyromegaly. Cardiovascular: Regular rate and rhythm without murmurs, rubs, or gallops appreciated. Pulmonary: Clear to auscultation bilaterally in anterior lung gresham, no crackles, wheezes, or rhonchi. Normal respiratory effort with no use of accessory muscles. Abdomen: Soft, nontender, nondistended, bowel sounds present. Suprapubic tenderness. No hepatosplenomegaly or masses appreciated. Extremities: No clubbing, cyanosis, or edema. Skin: Normal temperature, turgor, and texture; no rash, ulcers, or subcutaneous nodules appreciated. Neurological: Patient is awake. Tongue midline. Sensation intact. Mild dysarthria but comprehendible at times. DTR's intact. No aphasia. Spontaneously moves all extremities. Test 05/22/16 05:15 05/22/16 10:00 4/11/17 04:36 05/24/16 07:50 Prothrombin Time 10.4sec (8.1-12.5) Prothromb Time International Ratio 0.97ratio Activated Partial Thromboplast Time 26.8sec (22.8-33.0) Troponin T 0.010ug/L (0.0-0.011) Urine Color Yellow (YELLOW) Urine Appearance Clear (CLEAR,HAZY) Urine pH 6.0 (5.0-8.0) Urine Specific Easley 1.020 (1.003-1.035) Urine Protein Tracemg/dL (NEG,TRACE) Urine Glucose (UA) 100mg/dL (NEGATIVE) Urine Ketones Negativemg/dL (NEGATIVE) Urine Occult Blood Negative (NEGATIVE) Urine Nitrite Negative (NEGATIVE) Urine Bilirubin Negative (NEGATIVE) Urine Urobilinogen Normalmg/dL (NORMAL) Urine Leukocyte Esterase Negative (NEGATIVE) Urine RBC 0-2/hpf (0-2) Urine WBC 0-5/hpf (0-5) Urine Epithelial Cells Occasional/hpf (NONE-MOD) Urine Crystals None seen (NONE SEEN) Urine Bacteria Few/hpf (NONE-FEW) Urine Hyaline Casts None/lpf (NONE) Urine Granular Casts None seen (NONE SEEN) Urine Waxy Casts None seen (NONE SEEN) Urine Red Blood Cell Casts None seen (NONE SEEN) Urine White Blood Cell Casts None seen (NONE SEEN) Urine Mucus Present (None Seen) Urine Trichomonas None seen (NONE SEEN) Urine Yeast None (NONE SEEN) Urinalysis Comment None Urine Culture Reflexed Not indicated Neutrophils (%) (Auto) 66.6% (40-74) Lymphocytes (%) (Auto) 21.3% (14-46) Monocytes (%) (Auto) 6.9% (4-12) Eosinophils (%) (Auto) 4.8% (0-5) Basophils (%) (Auto) 0.3% (0-3) Lactic Acid Level 0.6mmol/L (0.4-2.0) Ammonia 45ug/dL (18-53) Test 05/25/16 04:04 White Blood Count 6.6th/mm3 (3.8-10.1) Red Blood Count 3.72mil/mm3 (4.40-5.80) Hemoglobin 12.1g/dL (13.8-17.2) Hematocrit 35.9% (41.0-50.0) Mean Corpuscular Volume 96.5fL (81-100) Mean Corpuscular Hemoglobin 32.5pg (27.0-35.0) Mean Corpuscular Hemoglobin Concent 33.7% (32.0-37.0) Red Cell Distribution Width 13.0% (12.3-15.4) Platelet Count 200bil/L (150-400) Sodium Level 141mEq/L (134-144) Potassium Level 4.0mEq/L (3.5-5.2) Chloride Level 107mEq/L (97-108) Carbon Dioxide Level 20mmol/L (18-29) Blood Urea Nitrogen 14mg/dL (8-27) Creatinine 0.93mg/dL (0.76-1.27) Estimat Glomerular Filtration Rate 82mL/min (>59) Glucose Level 143mg/dL (60-99) Calcium Level 8.6mg/dL (8.5-10.1) Total Bilirubin 0.5mg/dL (0.0-1.2) Aspartate Amino Transf (AST/SGOT) 21U/L (0-50) Alanine Aminotransferase (ALT/SGPT) 19U/L (0-44) Alkaline Phosphatase 168U/L (25-160) Total Protein 6.2g/dL (6.4-8.4) Albumin 3.5g/dL (3.4-5.0) Phenytoin (Dilantin) Level 8.7uG/mL (10.0-20.0) Discharge Medications Discharge Medications Aspirin (Aspirin) 81 Mg Tablet 81 MG PO Every Other Day (Reported) Donepezil (Donepezil) 10 Mg Tablet 20 MG PO QPM (Reported) Fosphenytoin Sodium (Fosphenytoin Sodium) 100 Mg Pe/2 Ml Vial 100 MG IJ QID Prescribed by: WIL FRIAS DO Lactobacillus Combination No.4 (Probiotic) 1 Each Capsule 1 EACH PO DAILY ( Reported) Levetiracetam (Keppra) 1,000 Mg Tablet 1,000 MG PO BID Prescribed by: WIL FRIAS DO Lisinopril (Lisinopril) 2.5 Mg Tablet 2.5 MG PO DAILY Prescribed by: EARNEST YBARRA MD Lovastatin (Lovastatin) 40 Mg Tablet 40 MG PO QPM (Reported) Metformin (Glucophage) 1,000 Mg Tablet 1,000 MG PO BIDWM (Reported) Mirtazapine (Mirtazapine) 15 Mg Tablet 1.5 TAB PO HS (Reported) NPH, Human Insulin Isophane (HUMulin-N U100 Insulin Vial) 100 Unit/1 Ml Vial 50 UNIT SUBQ QAM (Reported) NPH, Human Insulin Isophane (HUMulin-N U100 Insulin Vial) 100 Unit/1 Ml Vial 20 UNIT SUBQ QPM (Reported) Nifedipine ER (Nifedipine ER) 60 Mg Tab.er.24 60 MG PO BID (Reported) Zolpidem (Zolpidem) 5 Mg Tablet 5 MG PO HS (Reported) Followup Plan Disposition: Transfer to the [facility]. Accepting physician is Dr. Myron Bright Time spent 40 minutes Attending Statement patient seen with Dr Frias and agree with discharge summary copies to: Suhas Fisher MD, Bob A DO May 25, 2016 12:02 Santiago Hansen MD May 26, 2016 13:27
[2016-05-25 12:03] VITALS: BP 143/73; PULSE 71; RESP 21; O2SAT 97
[2016-05-25] MEDS ORDERED: LEVE100014 PO (12:04)
[2016-05-25] MEDS ORDERED: [UNRECOGNIZED DRUG - CODE] IJ (12:06)
--- NOTE | 2016-05-25 14:11 | NUR ---
Transfer to [facility] Patient left with EMS services in a stable condition. All personal belongings with , tele removed, peripheral IV and stock catheter left in place. Patient received both Keppra and Cerybyx IV prior to transfer. Two doses of Cerybyx ordered, 100mgPE and 500mgPE -100mgPE scheduled for 1130 and the 500mgPE was not verified by pharmacy/available to administer prior to transport -- 100mgPE administered. 3 units lispro administered for BG of 265 per protocol. Vital signs with normal limits. Transfer packet with EMS services.
--- NOTE | 2016-05-25 18:45 | PROCED ---
[address] [address] EEG PATIENT: GRAEME ESPINAL : 1930 MR#: [id number] ADMIT: 05/22/2016 JOB ID: [id number] DATE OF SERVICE: 05/24/2016 HISTORY: The patient is an 85-year-old man with a history of seizures. TECHNICAL DESCRIPTION: This digital EEG was recorded using 25 scalp and ear, and two EKG electrodes. It was reviewed in bipolar and referential montages following reformatting in 10-20 International Electrode Placement System. During the recording, patient was noted to be awake, drowsy, and asleep. The background was composed of a polymorphic mixture principally of theta rhythms; however some degree of delta as well. Approximately 6-7 hertz, 10-20 microvolts that did appear symmetrical and reactive posterior to eye opening. The rest of the background was composed of low voltage faster frequencies. There was bilateral intermittent frontally predominant beta activity noted throughout this recording. There were no focal, lateralized, or epileptiform discharges noted. There were no seizures seen. There was intermittent myogenic and movement artifact. Sleep was characterized by the attenuation of the alpha rhythm, the appearance of symmetrical vertex waves, heralding stage 1 of sleep. This is followed by the development of symmetrical sleep spindles heralding stage 2 of sleep. Hyperventilation could not be performed. Photic stimulation from 1-30 hertz could not be performed. The EKG rhythm strip revealed a heart rate of 60-80 beats per minute with no apparent arrhythmias. IMPRESSION: This EEG performed in the awake, drowsy, and asleep states is abnormal. The slow background is suggestive of mild cerebral cortical dysfunction/encephalopathy. This is a nonspecific finding. It may be seen in a wide variety of different clinical conditions, including toxic, metabolic, hypoxic, inflammatory, autoimmune, and infectious states. The absence of epileptiform activity on an electroencephalogram does not exclude the possible diagnosis of a seizure disorder. Clinical correlation is advised.
== END 2016-05-25 13:20 | disposition short-term general hospital (02) | DRG 100 ==
LOC: SED 05:09 → PCC 09:35 → OBSVTOIN 09:35
PROVIDERS: ADMIT Internal Medicine; ATTEND Internal Medicine
DX: R56.9 Unspecified convulsions (principal); G93.40 Encephalopathy, unspecified; I10 Essential (primary) hypertension; F03.90 Unspecified dementia, unspecified severity, without behavioral disturbance, psychotic disturbance, mood disturbance, and anxiety; D32.0 Benign neoplasm of cerebral meninges; Z79.4 Long term (current) use of insulin; E11.649 Type 2 diabetes mellitus with hypoglycemia without coma; F32.9 Major depressive disorder, single episode, unspecified; E78.5 Hyperlipidemia, unspecified; R27.0 Ataxia, unspecified; E11.319 Type 2 diabetes mellitus with unspecified diabetic retinopathy without macular edema